=== PATIENT | female | born 1970 | race Caucasian/White ===

== ENCOUNTER 2025-05-12 09:54 | Day surgery (SDC) | payer OTHER, SELFPAY ==
[2025-05-12] VITALS (14 sets, daily range): BP systolic 102–130; BP diastolic 63–86; PULSE 52–83; RESP 14–16; TEMP 36.4–36.9; O2SAT 97–100; BMI 25.9
[2025-05-12] MEDS: Lactated Ringers 1,000 ML 15 ML IV (10:47)
--- NOTE | 2025-05-12 10:54 | PRE.ANES_ITS ---
ASA Classification* ASA Classification ASA Classification: 1 Assessment & Plan Anesthesia* Anesthesia Assessment Anesthesia Assessment: Discussed sedation and/or anesthesia options, risks, benefits, and alternatives with patient/parents/legal guardian/POA. Questions invited. The patient/parents/legal guardian/POA seems to understand and agrees to proceed with anesthesia plan. Reviewed the physical assessment, medical history, allergy history and patient home medications list prior to surgery/procedure/anesthetic and documented any changes. Performed airway and anesthesia risk assessments. Anesthesia Type Anesthesia Type: General and MAC History Source History Obtained from:: Patient and Chart Anesthesia Focused Assessment* Temperature: 98.5 F Pulse Rate: 72 Blood Pressure: 107/83 Respiratory Rate: 16 Pulse Ox: 100 Oxygen Delivery Method: Room Air Airway Assessment Mouth opens: >3 cm Mallampati Score: II Teeth Condition: Intact Neck Range of motion (ROM): Full ROM Labs Anesthesia Preop lab: CBC WBC, (4.4-11.0) 5.9 K/mm3 05/15/17, 10:10 RBC, (4.2-5.4) 4.62 M/mm3 05/15/17, 10:10 Hgb, (12.0-15.0) 13.8 g/dl 05/15/17, 10:10 Hct, (37-47) 42.7 % 05/15/17, 10:10 Plt Count, (150-450) 275 K/mm3 05/15/17, 10:10 CHEMISTRY TSH, (0.358-3.74) 0.75 uIU/mL 05/15/17, 10:10 COAG PT, (11.7-14.9) 13.1 SECONDS 05/15/17, 10:10 Urine Test Negative Negative 05/22/17, 10:50 Pre-Assessment Diagnosis/Proposed Procedure Planned Operative Procedure(s): THD hemorrhoid ligation Anesthesia History 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 When Was Last Pacemaker Check QUESTION #4 FULL TEXT: You/Your Family Experience fever (hyperthermia) with Anesthesia Last Oral Intake Last Oral intake: Last Oral Intake NPO since 00:00 05/12/25 10:36 Meds taken in AM with sips of water? Meds patient instructed to take am of surgery PONV PONV - wheelabrator operator: PONV - wheelabrator operator Female Yes 05/03/25 09:32 HX of Motion Sickness Yes 05/03/25 09:32 HX of N/V After Surgery No 05/03/25 09:32 Non-Smoker Yes 05/03/25 09:32 Duration of Surgery greater No 05/03/25 09:32 than 60 minutes Number of Risk Factors 3 05/03/25 09:32 PONV Score Moderate Risk 05/03/25 09:32 Height & Weight Height & Weight: Anesthesia: Height & Weight Height 5 ft 5 in 05/12/25 10:36 Weight: 70.7 kg 05/12/25 10:36 Body Mass Index (BMI) 25.9 05/12/25 10:36 Respiratory Assessment Respiratory Assessment - wheelabrator operator: Respiratory Tract Infection Hx - wheelabrator operator Hx Respiratory Tract Infection Yes: MILD CONGESTION 05/03/25 09:32 STOP Sleep Apnea STOP Sleep Apnea - wheelabrator operator: STOP Sleep Apnea - wheelabrator operator Hx Hypertension No 05/03/25 09:32 Hx Sleep Apnea No 05/03/25 09:32 CPAP BIPAP Do you snore loudly (louder No 05/03/25 09:32 than talking or can be heard Do you often feel tired/ No 05/03/25 09:32 fatigued/ sleepy during daytime? Has anyone observed you stop No 05/03/25 09:32 breathing during sleep? STOP Results Negative 05/03/25 09:32 QUESTION #5 FULL TEXT : Do you snore loudly (louder than talking or can be heard through closed doors)? 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 Specify any problems Hx of Preganancy in last 3 No 05/03/25 09:32 Months Nurse Filling Out Transfusion [facility] 05/03/25 09:32 & Questions: Date: 05/03/25 12 09:32 Time: 09:38 05/03/25 09:32 Patient unable to answer at this time (ie. confused, unrespo /Reproduction History /Reproductive History - wheelabrator operator: /Reproductive Hx- wheelabrator operator Hx Now No 05/03/25 09:32 Gestational Age (in weeks): EDC: Hx Hx Para Hx Section SAB No 05/03/25 09:32 Does the father of the baby or his family experience fever w Father of the baby Malignant Hypertension history comment Active Medications Active Medications: Current Medications Generic Name Dose Route Start Last Admin Trade Name Freq PRN Reason Stop Dose Admin Lactated Ringer's 1,000 mls @ 15 mls/hr 05/12/25 10:00 05/12/25 10:47 IV 15 mls/hr .Q48H NICOLE Administration PFSH Medical History Wears contact lenses Wears glasses Post-menopausal History of IBS Non-smoker Hemorrhoids Home Medications ?Medication ?Instructions ?Recorded ?Last Taken ?Type NK 05/03/25 Unknown History Allergy/AdvReac Type Severity Reaction Status Date / Time No Known Allergies Allergy Verified 04/19/25 13:13 Family History Mother Cancer bladder cancer with mets to the brain Father Cancer vocal cord and larynx cancer Surgical History History of uterine ablation History of colonoscopy Social History Smoking Status: Never smoker alcohol intake: never substance use type: does not use Review of Systems (Anesthesia) ROS Narrative System reviewed and no additional complaints, except as documented.
--- NOTE | 2025-05-12 10:59 | PCM.HP.STD ---
HPI - General General Date of Admission: 05/12/25 Date of Service: 05/12/25 Chief Complaint: Hemorrhoids HPI Narrative HERNAN CHAMPION, is a 54 F who presents for elective Doppler guided hemorrhoid artery ligation surgery. Patient was seen to the office recently and the surgery was offered to her. [facility], [facility] Medical History Wears contact lenses Wears glasses Post-menopausal History of IBS Non-smoker Hemorrhoids Home Medications ?Medication ?Instructions ?Recorded ?Last Taken ?Type NK 05/03/25 Unknown History Allergy/AdvReac Type Severity Reaction Status Date / Time No Known Allergies Allergy Verified 04/19/25 13:13 Family History Mother Cancer bladder cancer with mets to the brain Father Cancer vocal cord and larynx cancer Surgical History History of uterine ablation History of colonoscopy Social History Smoking Status: Never smoker alcohol intake: never substance use type: does not use Patient's Goals Of Care . What would you like to achieve or improve as a result of your hospital stay?: . Vital Signs Vital Signs Vital Signs: 05/12/25 10:35 05/12/25 10:36 05/12/25 10:38 Temperature 98.5 F Temperature Source Temporal Pulse Rate 72 Respiratory Rate 16 Respiratory Pattern Normal Blood Pressure 107/83 H Blood Pressure Mean 91 Blood Pressure Source Monitor Blood Pressure Position Semi-Fowlers Blood Pressure Location Left Arm Baseline BP 107/83 Pulse Ox 100 Oxygen Delivery Method Room Air 05/12/25 10:55 Temperature 98.5 F Temperature Source Pulse Rate 72 Respiratory Rate 16 Respiratory Pattern Blood Pressure 107/83 H Blood Pressure Mean Blood Pressure Source Blood Pressure Position Blood Pressure Location Baseline BP Pulse Ox 100 Oxygen Delivery Method Room Air Weight Weight: 155 lb 13.869 oz Body Mass Index (BMI) 25.9 Physical Exam Const alert, oriented x3 and no apparent distress Assessment & Plan Assessment/Plan (1) Hemorrhoids: PLAN: Plan The patient is a 54-year-old female in need of a Doppler guided hemorrhoid artery ligation surgery. We again reviewed the details of the planned procedure including risks benefits and alternatives. She wishes to proceed. This began momentarily Charges/Coding Visit Charges Inpatient E&M: 78283 Init Hosp L3
--- OUTSIDE RECORDS SUMMARY | 2025-05-12 11:05 | XMS RPT_ITS | CCD ---
Author Organization [facility] CliniSyne Care Team Providers Care Legal Support Assistant Name Role Phone Priya Stevens Unavailable Unavailable Priya Stevens Unavailable Unavailable Priya Stevens Unavailable Unavailable VaccarielloPriya Unavailable Unavailable Priya Sumnre MD Unavailable Dr. Rj Fontaine DO Unavailable [phone] Dr. Rj Yeboah MD Unavailable Dr. Bang Lacey MD Unavailable Ivanna BARBOSA, Dr. Jhoana Sandra Unavailable Rodney ORTIZ, Dr. Priya Hutchinson Unavailable [phone] Physical Therapy, Kieran Albert Unavailable [place] Tender/Gynecology Prov. Unavailable Un available Benjamin TEACHER COUNSELOR, Karma Unavailable Perry ORTIZ, Pako Gomez Unavailable Day TEACHER COUNSELOR, Apple Unavailable Unavailable Michele TEACHER COUNSELOR, Jazzy Og Unavailable Unavailable Satya BAXTER, Brenda Francois Unavailable Luis CRAIN, Brenda Duckworth Unavailable Unavaila ble Marthey TEACHER COUNSELOR, Mery Unavailable Unavailable Uptain CNM, Crystal K Unavailable [phone] Vess TEACHER COUNSELOR, Neilee L Unavailable Unavailable Randal CRAIN, Papa Unavailable Unavailable Peyton TEACHER COUNSELOR, Linh Slaughter Unavailable Unavaila ble Zaugg TEACHER COUNSELOR, Sarahy Unavailable Unavailable Unavailable Unavailable Camilo TEACHER COUNSELOR, Elana Unavailable Unavailable Unavailable Unavailable UPELLY, CRYSTAL CNM Primary Care Unavailable UPELLY, CRYSTAL CNM Attending Unavailable PRIYA SUMNER Consulting Unavailable UPTAIN CRYSTAL CNM Admitting Unavailable PROVIDER, UNKNOWN Consulting Unavailable PROVIDER, UNKNOWN Consulting Unavailable PROVIDER, UNKNOWN Consulting Unavailable UPTAIN, CRYSTAL CNM Primary Care Unavailable LIBERTADGERALD CNM Attending Unavailable PRIYA SUMNER Consulting Unavailable GERALD MAURER CNM Admitting Unavailable PROVIDER, UNKNOWN Consulting Unavailable PROVIDER, UNKNOWN Consulting Unavailable PROVIDER, UNKNOWN Consulting Unavailable Medications Current Medications Medication Drug Class(es) Dates Sig (Normalized) Sig (Original) amoxicillin 875 mg / clavulanate 125 mg oral tablet (7 sources) Penicillin-class Antibacterial Start: 10-13-2024 amoxicillin 875 mg-potassium clavulanate 125 mg tablet ; 1 (one) tablet q12hrs for 0 days Quantity: 20 {Tablet} Refills: 0 Ordered: 13-Oct-2024 MD Priya Sumner Start: 13-Oct-2024 Start: 06-14-2015 End: 06-24-2015 take 1 tablet by mouth twice daily at mealtime AUGMENTIN, 875-125MG (Oral Tablet) ; 1 Tab two times daily for 10 days Quantity: 20 {Tablet} Refills: 0 Ordered: 10-Jul-2015 MD Pako Amador Start: 14-Jun-2015 End: 24-Jun-2015 Status: Inactive Comments: Take with food Comment on above: Take with food Completed/Discontinued Medications Medication Drug Class(es) Dates Sig (Normalized) Sig (Original) ciprofloxacin 500 mg oral tablet (6 sources) Quinolone Antimicrobial Start: 05-31-2015 End: 06-14-2015 take 1 tablet by mouth twice daily CIPROFLOXACIN HCL, 500MG (Oral Tablet) ; 1 (one) Tablet bid for 0 days Quantity: 14 {Tablet} Refills: 0 Ordered: 14-Jun-2015 Start: 31-May-2015 End: 14-Jun-2015 Status: Inactive ibuprofen 800 mg oral tablet (6 sources) Nonsteroidal Anti-inflammatory Drug take 1 tablet by mouth once daily IBUPROFEN, 800MG (Oral Tablet) ; 1 daily (800 MG) Status: Inactive Comments: per Андрей Comment on above: per Андрей methylPREDNISolone 4 mg oral tablet (6 sources) Corticosteroid Start: 06-07-2010 End: 06-13-2010 MEDROL (YECENIA), 4MG (Oral Tablet) ; 1 Tab as directed for 6 days Quantity: 1 {dose_pack} Refills: 0 Ordered: 07-Jun-2010 MD Priya Sumner Start: 07-Jun-2010 End: 13-Jun-2010 Status: Inactive Comments: wm Comment on above: wm traMADol hydrochloride 50 mg oral tablet (6 sources) Opioid Agonist take 2 tablets by mouth once daily ULTRAM, 50MG (Oral Tablet) ; 2 daily (50 MG) Status: Inactive Comments: per Андрей Comment on above: per Андрей Problems Active Problems Problem Classification Problem Date Documented Da te Episodic/Chronic Acquired foot deformities (12 sources) Hallux valgus; Translations: [Bunion of right foot] 01-08-2024 Episodic Administrative/social admission (12 sources) Sickness in the family; Translations: [Other stressful life events affecting family and household] 01-08-2024 Episodic Gastrointestinal hemorrhage (18 sources) Rectal hemorrhage; Translations: [Hemorrhage of anus and rectum] 01-08-2024 Episodic Genitourinary symptoms and ill-defined conditions (12 sources) Dysuria; Translations: [Dysuria] 01-11-2020 Episodic Hemorrhoids (20 sources) External hemorrhoids; Translations: [Residual hemorrhoidal skin tags] 01-08-2024 Episodic Comment on above: painful, would like removed uncomfortable, about 2-3 cm per pt description and bruised, having some red bleeding and pain with rough bm's. Immunizations and screening for infectious disease (6 sources) Requires diphtheria, tetanus and pertussis vaccination; Translations: [Encounter for immunization] 05-09-2011 Episodic Menstrual disorders (20 sources) Irregular periods; Translations: [Irregular menstruation, unspecified] 01-04-2022 Chronic Nonmalignant breast conditions (20 sources) Breasts asymmetrical; Translations: [Other specified disorders of breast] 01-04-2022 Episodic Other aftercare (6 sources) Drug indicated; Translations: [Other nursing home (current) drug therapy] 06-07-2010 Episodic Other congenital anomalies (6 sources) Congenital accessory skin tag; Translations: [Other specified congenital malformations of skin] 11-19-2013 Chronic Other connective tissue disease (6 sources) Neuralgia, neuritis, and radiculitis, unspecified 04-13-2010 Episodic Other female genital disorders (1 source) Abnormal uterine and vaginal bleeding, unspecified; Translations: [ABNORMAL UTERINE AND VAGINAL BLEEDING, UNSPECIFIED] Onset: 04-21-2017 Chronic Other nutritional; endocrine; and metabolic disorders (1 source) Personal history of other endocrine, nutritional and metabolic disease; Translations: [Personal history of other endocrine, nutritional and metabolic disease] Onset: 02-15-2025 Episodic Other screening for suspected conditions (not mental disorders or infectious disease) (20 sources) Thyroid function tests abnormal; Translations: [Abnormal results of thyroid function studies] 01-04-2022 Episodic Other skin disorders (12 sources) Sebaceous cyst of skin; Translations: [Sebaceous cyst] 07-12-2015 Episodic Other skin disorders (6 sources) Infection of sebaceous cyst; Translations: [Sebaceous cyst] 06-14-2015 Episodic Other skin disorders (12 sources) Lesion of skin of face; Translations: [Disorder of the skin and subcutaneous tissue, unspecified] 11-19-2013 Episodic Other upper respiratory infections (2 sources) Acute sinusitis; Translations: [Acute sinusitis, unspecified] 10-13-2024 Episodic Residual codes; unclassified (12 sources) Influenza vaccination declined; Translations: [Immunization not carried out because of patient refusal] 01-08-2024 Episodic Residual codes; unclassified (6 sources) Body mass index 20-24 - normal; Translations: [Body mass index (BMI) 24.0-24.9, adult] 04-10-2017 Episodic Spondylosis; intervertebral disc disorders; other back problems (12 sources) Backache with radiation; Translations: [Dorsalgia, unspecified] 08-08-2010 Episodic Unclassified (6 sources) Number of Children 01-08-2024 Comment on above: 3. Unclassified (6 sources) Number of Pregnancies 01-08-2024 Comment on above: 3. Unclassified (6 sources) Vaginal deliveries 01-08-2024 Comment on above: 3. Past or Other Problems Problem Classification Problem Date Documented Date Episodic/Chronic Other and unspecified benign neoplasm (6 sources) Hyperplastic polyp of large intestine; Translations: [Polyp of colon] Onset: 03-26-2022 01-08-2024 Episodic Other and unspecified benign neoplasm (6 sources) Adenomatous polyp of colon ; Translations: [Benign neoplasm of colon, unspecified] Onset: 03-26-2022 01-08-2024 Episodic Unclassified (7 sources) Well adult female 01-08-2024 Unclassified (6 sources) Well adult female - The patient feels well with no complaints, has good energy level and is sleeping well. The first day of the last menstrual period was : (no longer having). The current method of contraception is: partner had vasectomy. The patient has a balanced diet. The patient exercises 3 - 4 times per week. The patient sleeps 8 hours per night. The patient's libido is normal. 01-15-2023 Unclassified (6 sources) Well adult female - The patient feels well with no complaints, has good energy level and is sleeping well. The patient has a balanced diet and takes no supplemental vitamins & iron. The patient exercises 3 - 4 times per week. The patient sleeps 8 hours per night. Note for Well adult female: concerns: had vertigo a few months ago when standing, lying down and while doing yoga. states she was unable to pop ears and they felt plugged. symptoms have since resolved. States she is still dealing with hemorrhoid and would like to discuss options. Has bunions on feet that she is wanting referral to staff auditor. 01-04-2022 Unclassified (6 sources) Well adult female - The patient feels well with minor complaints (Has moles that she would like checked on abdomen. Also has red spots on stomach, forehead, and breast.), has good energy level and is sleeping well. The patient is not using any method of contraception at this time. The patient has a balanced diet and takes no supplemental vitamins & iron. The patient exercises weekly (walking two to three days a week). The patient sleeps 8 hours per night. 01-09-2021 Unclassified (6 sources) Well adult female - The patient feels well with no complaints. The current method of contraception is: partner had vasectomy. The patient has a balanced diet. The patient exercises 3 - 4 times per week. The patient sleeps 8 hours per night. 01-11-2020 Unclassified (6 sources) Well adult female - The patient feels well with no complaints, has good energy level and is sleeping well. The first day of the last menstrual period was : (December 2018, history of ablation). The patient is not using any method of contraception at this time. The patient has a balanced diet and takes no supplemental vitamins & iron. The patient exercises 3 - 4 times per week. The patient sleeps 8 hours per night. 04-02-2019 Unclassified (6 sources) Well Adult, female - The patient feels well with minor complaints (irregular periods, hdez). The first day of the last menstrual period was : (03/27/2017). The current method of contraception is: partner had vasectomy. The patient has a balanced diet. The patient exercises weekly. The patient sleeps 8 hours per night. 04-10-2017 Unclassified (6 sources) Well Adult, female - The patient feels well with no complaints, has good energy level and is sleeping well. The first day of the last menstrual period was : (11/22/15last year and a half irregular menses). The current method of contraception is: partner had vasectomy. The patient has a balanced diet. The patient exercises 3 - 4 times per week. The patient sleeps 8 hours per night. 12-14-2015 Unclassified (6 sources) Sebaceous Cyst - Sebaceous cyst on left side of nose. Took 10 day course of Augmentin 06-14-15. Redness and swelling improved. 07-12-2015 Unclassified (6 sources) New skin lesions - The onset of the skin lesions has been rapid and they have been occurring for 3 days. The skin lesions have been increasing in size. The skin lesions are located in the face (left side of nose.). Note for Skin lesions: Has pain and swelling of left nose and left eye. reviewed by [facility] 06-14-2015 Unclassified (6 sources) UTI - Symptoms include dysuria, urinary frequency, urinary urgency and abdominal pain, but do not include hematuria, dark urine or malodorous urine. The pain is located in the suprapubic area. The pain radiates to the back. The patient describes the pain as dull. Onset was gradual 1 week(s) ago. The symptoms occur constantly. The patient describes this as moderate in severity and worsening. Associated symptoms include fever, but do not include chills, nausea or vomiting. 05-31-2015 Unclassified (6 sources) Menstrual problems - The menstrual problems are characterized as intermenstrual spotting, absent menses and irregular menses and have been occurring in an irregular pattern for 1 year. The first day of the last menstrual period was : (02/12/15- 02/24/15). Currently : no. The symptoms have been associated with abdominal cramps and hot flashes, but have not been associated with dizziness, fever, nausea, syncope, vomiting or weight loss (Pt lost 40# on isogenics, is exercising and is eating healthy maintenence foods). The patient denies the use of oral contraceptives or thyroid medications. Note for Menstrual problems: see attached note for her journal dicumentation of periodsPt. also c/o history of moderate yellow/white vaginal discharge all of the time. No c/o perineal pain or itching. 03-06-2015 Unclassified (6 sources) Skin lesion - The skin lesion appeared gradually and has been occurring for 6 months. It has been increasing in size. The lesion is located on the face. Note for Skin lesion: -Also skin tags on her back. 11-19-2013 Unclassified (6 sources) Rectal bleeding - The onset of the rectal bleeding has been sudden and has been occurring in an intermittent pattern for 1 week. The bleeding is characterized as blood streaking of toilet paper. Note for Rectal bleeding: -States she is pretty sure she has had a hemorrhoid since delivery of last child. Never had bleeding. In past week, increased discomfort, blood with BM, feels 2-3 new lumpy areas and feels like she cannot fully complete a bowel movement. Has not tried any otc ointments.no family h/o rectal or colon ca 11-02-2012 Unclassified (6 sources) Well adult female - The patient feels well with minor complaints, has decreased energy level (dealing with stress right now.) and is sleeping poorly. Most recent Pap smear: : (04/13/10 wnl). The first day of the last menstrual period was : (apr 11, 2011). The current method of contraception is: partner had vasectomy. Patient has not had a screening mammogram. Patient has not had bone density screening. Patient has not had a cholesterol screening. There has been no glucose screening. Patient has not had a Zostavax vaccine. Patient has not had a Pneumovax vaccine. Patient has not received a recent influenza vaccine. Last Tetanus booster: unknown/unsure. The patient has a balanced diet and takes no supplemental vitamins & iron. Patient exercises weekly (walking). Patient sleeps 7 hours per night. 05-09-2011 Unclassified (5 sources) Well adult female - The patient feels well with no complaints, has good energy level and is sleeping well. The first day of the last menstrual period was : (No menses, had an ablation 04/2017). The patient is not using any method of contraception at this time. The patient has a balanced diet. The patient exercises 3 - 4 times per week. The patient sleeps 8 hours per night. The patient's libido is decreased. 01-08-2024 Unclassified (1 source) Cold Symptoms 10-13-2024 Unclassified (1 source) Cold Symptoms - Symptoms include nasal congestion, runny nose, ear fullness, scratchy throat, dry cough, productive cough, general malaise and headache, but do not include ear pain, fever or facial pain. The onset was gradual 1 week(s) ago. The symptoms occur constantly. The patient describes this as moderate in severity and unchanged. Current treatment includes non-prescription cold medication (cold and flu). Risk factors do not include smoking. The patient has not been exposed to an individual with a cough, an individual with an upper respiratory infection, an individual with similar symptoms, an individual with strep or secondhand smoke. Patient denies history of seasonal allergies, recurrent sinusitis, recurrent strep pharyngitis, asthma, tonsillectomy or recurrent ear infections. 10-13-2024 Results Test Name Value Interpretation Reference Range [facility] LIPID PANEL, STANDARD - Cholesterol [Mass/Vol] 202 mg/dL High <200 [facility] Comment on above: Performed By: #### 7 [id number] #### [facility] [address] [address] Shift: Fernando Bower MD Cholesterol in HDL [Mass/Vol] 71 mg/dL Normal > OR = 50 [facility] Comment on above: Performed By: #### 7 600 #### [facility] [address] Shift: Fernando Bower MD Cholesterol in LDL [Mass/Vol] 113 mg/dL High [facility] Comment on above: Result Comment: Refe rence range: <100 Desirable range <100 mg/dL for primary prevention; <70 mg/dL for patients with CHD or diabetic patients with > or = 2 CHD risk factors. LDL-C is now calculated using the Acosta calculation, which is a validated novel method providing better accuracy than the Friedewald equation in the estimation of LDL-C. Justo ESRTADA et al. BING. 2013;310(19): 9748-6860 (http://education.M-Audio.PeopleLinx/faq/GML320) Performed By: #### 7 600 #### [facility] [place] [address] [address] Shift: Fernando Bower MD Cholesterol.total/Shaye sterol in HDL [Mass ratio] 2.8 {ratio} Normal <5.0 [facility] Comment on above: Performed By: #### 7 600 #### [facility] [place] [address] [employer] [employer] Shift: Fernando Bower MD NON HDL CHOLESTEROL 131 mg/dL (calc) High <130 [facility] Comment on above: Result Comment: For patients with diabetes plus 1 major ASCVD risk factor, treating to a non-HDL-C goal of <100 mg/dL (LDL-C of <70 mg/dL) is considered a therapeutic option. Performed By: #### 7 600 #### [facility] [address], [address] [place] [address] [employer] Super[employer] [address] Shift: Fernando Bower MD Triglyceride [Mass/Vol] 85 mg/dL Normal <150 [facility] Comment on above: Performed By: #### 7 600 #### [facility] [place] [address] [address] Shift: Fernando Bower MD 3D MAMM BILAT SCREEN 05-11 3D MAMM BILAT SCREEN [place] [address] Patient: DIVINA MENG Phone#: : [phone] Age: 53 Gender: F Pt. Type: Out Account: [id number] Location: Ordering: [facility] Exam Date: 05/11/2024/15:29 Family Phys: PRIYA SUMNER Charge Code: [id number] Physician: [place] Order #: [id number] Dose#: PROCEDURE: BILATERAL SCREENING BREAST TOMOSYNTHESIS MAMMOGRAM WITH CAD COMPARISON: [facility], 3D BILAT SCREEN, 03/08/2022, 17:08. [facility], BILAT SCREENING, 11/30/2019, 13:11. INDICATIONS: SCREENING BREAST COMPOSITION: Heterogeneously dense, which may obscure small masses. FINDINGS: DIAGNOSTIC CATEGORY 2--BENIGN: RIGHT BREAST: No significant suspicious finding. No significant change has occurred. LEFT BREAST: No significant suspicious finding. No significant change has occurred. RECOMMENDATIONS: ROUTINE MAMMOGRAM AND CLINICAL EVALUATION IN 12 MONTHS. PLEASE NOTE: A NORMAL MAMMOGRAM DOES NOT EXCLUDE THE POSSIBILITY OF BREAST CANCER. A CLINICALLY SUSPICIOUS PALPABLE LUMP SHOULD BE BIOPSIED. THIS FACILITY UTILIZES A REMINDER SYSTEM TO ENSURE THAT ALL PATIENTS RECEIVE REMINDER LETTERS FOR APPOINTMENTS. THIS INCLUDES REMINDERS FOR ROUTINE MAMMOGRAMS, DIAGNOSITC MAMMOGRAMS, OR OTHER BREAST IMAGING INTERVENTIONS WHEN APPROPRIATE. THIS PATIENT WILL BE PLACED IN THE APPROPRIATE REMINDER SYSTEM. Dictated by: Kim Cheema MD on 05/11/2024 at 18:16 Approved by: Kim Cheema MD on 05/11/2024 at 18:20 Normal [facility] - Chemistry and C hemistry - challengeon 01-15-2023 Albumin [Mass/Vol] 4.6 g/dL Normal 3.6 - 5.1 g/dL [facility], [facility].; [employer] Albumin/Globulin [Mass ratio] 1.8 {ratio} Normal 1.0 - 2.5 [facility], [facility].; [employer] ALP [Catalytic activity/Vol] 58 U/L Normal 37 - 153 U/L [facility] [employer] ALT [Catalytic activity/Vol] 13 U/L Normal 6 - 29 U/L [place] [employer] [facility], [facility].; [employer] AST [Catalytic activity/Vol] 15 U/L Normal 10 - 35 U/L [employer], [facility].; [employer] Bilirubin [Mass/Vol] 0.4 mg/dL Normal 0.2 - 1 .2 mg/dL [place] [employer] [facility], [facility].; [employer] Calcium [Mass/Vol] 9.7 mg/dL Normal 8.6 - 10. 4 mg/dL [employer], [employer] Chloride [Moles/Vol] 104 mmol/L Normal 98 - 11 0 mmol/L [facility], [facility].; [place] Cholesterol [Mass/Vol] 204 mg/dL Abnormal [facility].; [facility], [facility]. Cholesterol in HDL [Mass/Vol] 82 mg/dL Normal [facility], [facility].; [employer] Cholesterol in LDL [Mass/Vol] 107 mg/dL Abnormal [facility], [facility].; [employer] CO2 [Moles/Vol] 28 mmol/L Normal 20 - 32 mmol/L [facility], [facility].; [employer], [facility]. Creatinine [Mass/Vol] 0.94 mg/dL Normal 0.50 - 1.03 mg/dL [facility], [facility].; [employer] [facility], [facility]. GFR/1.73 sq M.predicted among non-blacks MDRD (S/P/Bld) [Vol rate/Area] 74 mL/min/{1.73_m2} Normal [facility], [facility].; [employer] Glucose [Mass/Vol] 96 mg/dL Normal 65 - 139 mg/dL [facility], [facility].; [employer] Potassium [Moles/Vol] 4.4 mmol/L Normal 3.5 - 5.3 mmol/L [facility], [facility].; [employer] Protein [Mass/Vol] 7.1 g/dL Normal 6.1 - 8.1 g/dL [place] [employer] [facility], [facility].; [employer] Sodium [Moles/Vol] 141 mmol/L Normal 135 - 146 mmol/L [place] [employer] [facility], [facility].; [employer] Triglyceride [Mass/Vol] 64 mg/dL Normal [facility].; [employer], [employer] Urea nitrogen [Mass/Vol] 23 mg/dL Normal 7 - 25 mg/dL [place] [employer] [facility], [facility].; [employer], [facility]. No Panel Informationon 01-15 BUN/CREATININE RATIO SEE NOTE: Normal 6 - 22 [facility] [employer] [facility], [facility].; [employer] CHOL/HDLC RATIO 2.5 Normal [place] [employer] [facility].; [employer] GLOBULIN 2.5 Normal 1.9 - 3.7 [facility] [employer] NON HDL CHOLESTEROL [address] [facility] [place] [employer] [facility], [facility] TSH W/REFLEX TO FT4 0.94 {mIU/L} Normal [facility], [employer], [employer]. Final Surgical Pathology Rep shea 04-02-2022 Final Surgical Pathology Report . Pathology Reports Accession: Collected Date/Time: Received Date/Time: Pathologist: [id number] 03/29/2022 12:54 EDT 04/01/2022 12:54 ANGELIA CORTEZ MD Final Surgical Pathology Report DIAGNOSIS: A) COLON BIOPSY AT 10 CM - HYPERPLASTIC POLYP. B) CECUM, BIOPSY - SERRATED ADENOMA. COMMENT: [facility] [id number] CLINICAL INFORMATION: COLONOSCOPY RECTAL BLEEDING SPECIMEN: A COLON, BX - 10 CM B COLON, BX - CECUM GROSS DESCRIPTION: A. Received in formalin, labeled with the patients name, Case #[id number], and 10 cm 2 fallon tissue fragments measuring 0.2-0.4 cm. TS -1 B. Received in formalin labeled cecum BX are 4 fallon tissue fragments ranging from 0.3 to 0.5 cm. TS -1 Dictated by HALI MCKEON MICROSCOPIC DESCRIPTION: Slides reviewed. Electronically Signed by Pathology Report verified by [facility] ANGELIA VILLALOBOS Sign out Date: 04/02/2022 19:15 Performing Lab: [facility], [address] [place] [address] Pathology Dept Normal [facility] (ID) No Panel Informationon 01-09 [id number] SEE NOTE Normal [facility] [employer].; [employer], [employer]. CLINICAL INFORMATION: SEE NOTE Normal [facility], Inc.; [employer] COMMENT: SEE NOTE Normal [facility] [employer], [facility].; [employer] 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 HPV mRNA E6/E7 Not detected Normal [place] [employer] [facility].; [employer], [employer] INTERPRETATION/RESULT: SEE NOTE Normal [place] [facility] [employer], [employer].; [employer]. LMP: SEE NOTE Normal [place] [employer]. PREV. BX: SEE NOTE Normal [place] [employer].; [employer]. PREV. PAP: SEE NOTE Normal [place] [employer].; [employer], Inc[employer] SOURCE: SEE NOTE Normal [place] [employer] STATEMENT OF ADEQUACY: SEE NOTE Normal [facility] [employer]. Laboratory - Chemistry and C hemistry - challengeon 01-11-2020 Albumin [Mass/Vol] 4.2 g/dL Normal 3.6 - 5.1 g/dL [place] [employer]. Albumin/Globulin [Mass ratio] 1.8 {ratio} Normal 1.0 - 2.5 [place] [employer]. ALP [Catalytic activity/Vol] 51 U/L Normal 31 - 125 U/L [place] [employer].; [employer]. ALT [Catalytic activity/Vol] 12 U/L Normal 6 - 29 U/L [place] [employer].; [employer]. AST [Catalytic activity/Vol] 14 U/L Normal 10 - 35 U/L [place] [employer].; [employer]. Bilirubin [Mass/Vol] 0.4 mg/dL Normal 0.2 - 1 .2 mg/dL [place] [employer].; [employer]. Calcium [Mass/Vol] 9.3 mg/dL Normal 8.6 - 10. 2 mg/dL [place] [employer].; [employer]. Chloride [Moles/Vol] 103 mmol/L Normal 98 - 11 0 mmol/L [place] [employer].; [employer]. Cholesterol [Mass/Vol] 168 mg/dL Normal [facility] [employer]. Cholesterol in HDL [Mass/Vol] 64 mg/dL Normal [place] [employer].; [employer], [employer]. Cholesterol in LDL [Mass/Vol] 90 mg/dL Normal [employer].; [employer]. CO2 [Moles/Vol] 29 mmol/L Normal 20 - 32 mmol/L [facility], [facility].; [place] [employer], [facility]. Creatinine [Mass/Vol] 0.94 mg/dL Normal 0.50 - 1.10 mg/dL [facility], [facility].; [place] [employer], [employer]. GFR/1.73 sq M.predicted among blacks MDRD (S/P/Bld) [Vol rate/Area] 84 mL/min/{1.73_m2} Normal [facility], [facility].; [place] [employer] Glucose [Mass/Vol] 93 mg/dL Normal 65 - 99 mg/dL [facility], [facility].; [place] [employer], [employer]. Potassium [Moles/Vol] 4.3 mmol/L Normal 3.5 - 5.3 mmol/L [facility].; [place] [employer], [employer]. Protein [Mass/Vol] 6.6 g/dL Normal 6.1 - 8.1 g/dL [facility].; [employer], [employer]. Sodium [Moles/Vol] 138 mmol/L Normal 135 - 146 mmol/L [facility], [facility].; [employer], [employer]. Triglyceride [Mass/Vol] 53 mg/dL Normal [facility].; [employer], [employer]. Urea nitrogen [Mass/Vol] 17 mg/dL Normal 7 - 25 mg/dL [facility], [facility].; [employer], [employer]. No Panel Informationon 01-10 BUN/CREATININE RATIO NOT APPLICABLE Normal 6 - 22 [facility].; [employer], Inc[employer] CHOL/HDLC RATIO 2.6 Normal [place] [employer] [facility].; [employer], Inc[employer] eGFR NON-AFR. CUBAN 72 Normal [facility].; [employer], [employer]. GLOBULIN 2.4 Normal 1.9 - 3.7 [place] [employer] [facility].; [employer], Inc[employer] NON HDL CHOLESTEROL [address] [facility], [facility].; [employer], [employer]. Discharge Instructionon 12-2 Discharge Instruction [facility] [employer] [address] [place], [place] [address]Xxyfommmobbc for Home/Discharge Zvgzlyvseydj42/28/17 1215MR#: [id number] Acct: [id number]: DIVINA MENG Rep #: [id number]: 1970 47 From: Priya Stevens MDPCP: Priya Sumner Status: REG SDCDischarge Diet: No RestrictionsDischarge Activity: Return to Normal Activity, May Shower, May Take a Tub BathMay resume sexual activity in: 4 weeksCall your doctor if you observe: Fever of 101 or Higher, Inability to urinate, Inability tohave a bowel movement, Using more than one pad per hourAllergies/Adverse Reactions:AllergiesNo Known Allergies Allergy (Verified 05/15/17 12:45)Medications to take at DischargeOxycodone [Oxyir] 5 - 10 mg PO Q6H PRN PRN #10 tab 05/22/17The following prescriptions were given:Oxycodone [Oxyir] 5 - 10 mg PO Q6H PRN PRN #10 tabPRN Reason: Severe Pain ()Primary Care Physician:Dimitri Sumner [Primary Care Provider] -Please Follow Up With: Priya Stevens MDWhen: 3-4 weeks05/22/17 1216 Date Priya Stevens [facility] [place]: Priya Sumner [facility] ENDOMETRIAL BX/CURETTINGSon 05-22-2017 ENDOMETRIAL BX/CURETTINGS Patient: DIVINA MENG : 1970 (47/F) Acct Num: [id number] Phys: Priya Stevens MD Unit Num: [id number] [facility]: [facility] Specimen: [id number] Received: 05/22/17 629 Spec Type: ENDOM BX/C TISSUES TISSUES: A. Endometrium, NOS B. Uterine cervix, NOS COMMENT B. Immunohistochemistry ([id number]) for surrogate HPV marker (p16) supports theabove diagnosis. GROSS DESCRIPTION A - Received in fixative is one container labeled with the patient's name and designated endometrial curettings. The specimen consists of multiple fragments of hemorrhagic soft tissue that in aggregate measure 3 x 2.5 x 0.3 cm. The entire specimen is submitted in one cassette. B - Received in fixative is one container labeled with the patient's name and designated cervical sample. The specimen consists of multiple fragments of hemorrhagic mucoid tissue that in aggregate measure 1 x 0.5 x 0.1 cm. The specimen is totally submitted in one cassette. / ASHLIE:lori 05/22/17 TC:5 CPT: 88977 x2 HEADER OPERATION: Hysteroscopy, hydro-ablation PRE-OP DIAGNOSIS: Menorrhagia TISSUE SUBMITTED: A Endometrial curettings, B Cervical sample MICROSCOPIC DESCRIPTION Slides are reviewed. MICROSCOPIC DIAGNOSIS A. Endometrial curettings: Disordered proliferative endometrium. B. Cervical sample: Fragments of ectocervicall mucosa with focal minimal changes suspicious for HPVcytopathic effects. See comment. Focal acute and chronic inflammation. SJ:lori 05/23/17 Signed Edin Hyde 05/23/17 Normal [facility] Comment on above: Performed By: #### L 501.9520 ####[facility] [address] [facility] [place], [address] History and Physical Examon 05-22-2017 [facility] and [facility] [address] [place], [place] [address]Egjljoo and Twdlousq91/27/17 2111#: [id number] Acct: [id number]: DIVINA MENG Rep #: [id number]: 1970 47 From: Priya Stevens [facility] Status[facility] PRE [facility] YLocation: SDCHistory and PhysicalDate of Admission: 05/22/17Surgical History and PhysicalDivina Meng, a 47 year old female 3 0 0 0 3, presents for HTA, Hysteroscopy and Dand C on April at 12:00.-- Menorrhagia-- Divina presents here today as referral from Dr. Sheikh for AUB with history of IrregularMenses. 46 y.o. G 3 P 3 non-smoker with LMP of 11-06-17 lasting 5 days, and adds that thiswas her second period in 2 weeks with the first one lasting 4-5 days and heavy as well.Interested in an HTA and spouse has had a Vasectomy for control.Bleeding,Prolonge d/Heavy/Cramping which began 1 -2 years ago. Divina claims it started graduallyand has been present worsening in the last several months. It occurs intermittantly. It islocated in the vagina. It is located in the lower abdomen. Divina characterizes the qualitycramping.; Divina characterizes the quality heavy. Severity is moderate and not improving.Additional comments are: EMBx OK; u/s essentially normal.MEDICATIONS HISTORY:Patient is also takin. No MedsALLERGIES: No Known AllergiesInfections - Chicken poxIllnesses - no serious past illnessesAccidents - NoneHospitalizations - ChildbirthReview of Systems:GENERAL - Denies fever, or chillsSKIN - Denies skin changesEYES - Denies visual changesEARS - Denies difficulty hearingNOSE - Denies nasal congestion or bleedingMOUTH - Denies sore throat or difficulty swallowingNECK - Denies pain or swellingRESPIRATORY - Denies shortness of breath or wheezingCARDIOVASCULAR - Denies palpitations or chest painGASTROINTESTINAL - Denies nausea, vomiting, diarrhea, constipationGENITOURINARY - Denies dysuria, frequency of urination, incontinence of urineMUSCULOSKELETAL - Denies joint or muscle painNEUROLOGICAL - Denies localized numbness or weaknessPSYCHIATRIC - Denies depression or anxietyENDOCRINE - Denies heat or cold intolerance, weight loss or gainHEMATO-IMMUNOLOGIC - Denies excesive bleeding with cutsSOCIAL HISTORY:Alcohol Use - RARELYSmoking - NeverDiet - no special dietLifestyle - moderate stress lifestyle and marriedExercise - regularSeat Belt Use - alwaysEmployer - Active ChiropracticJob 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 - Billing ManagerIllicit Drug Use - NoneSexual Activity - marriedSpouse-Sig Other Name - MichaelSpouse-Sig Other Occupation - Forearm -- [employer]Birth Control - VasectomyFAMILY HISTORY: ncMENSTRUAL HISTORY: LMP Known?- Definite Amount/Duration - 5 days, Regularity - Irregular,Frequency - variable days, LMP - 04/28/17, Age Onset Menarche - 14PAST PREGNANCIES:Total Pregnancies - 3; Full Term Pregnancies - 3; Premature - 0; Abortions, Induced - 0;Abortions, Spontaneous - 0; Ectopics - 0;Multiple Births - 0; Living Children - 3PHYSICAL EXAMBP- 120/82 Sitting, Right arm, regular cuffTemp- 98.5 Taken OrallyWeight- 148.07225 lbsHeight- 65 inchBMI:24.68CONSTITUTION AL - NAD, well nourished, and well developedSKIN - No rash, lesions, or ulcersHEENT - Normocephalic, PERRLA, EOMINECK - No nodes, no nuchal rigidity and thyroid normal size and textureLYMPH NODES - Palpation of lymph nodes in neck and groins within normal limitsLUNGS - CTA x2 without wheezes, crackles or ralesCARDIAC - Regular rate and rhythm without rubs, murmurs, or gallopsABDOMEN - Without hepatosplenomegaly, distention, masses, rebound, or guarding; normal bowelsounds; no herniasEXTREMITIES - No edema or calf tendernessNEUROLOGICAL - Cranial nerves II-XII grossly intactPSYCHIATRIC - A and O to time, place, person, mood and affectExternal Genitial Vagina - non-tender without lesionsUrethra/Urethral Meatus - non-tenderBladder - non-tenderVagina - vaginal grider are pink and moist without loss of rugae and no evidence of atropyCervix - without cervical motion tenderness and has normal size and features without evidentlesions and cervix bulbus and somewhat inflammed ? from tampons; LAVH likely feasibleUterus - multiparous size 6 cm AND wt 75-125 gAdnexa - clear without massess or tendernessPap - deferred as not yet dueASSESSMENT/PLAN: MenorrhagiaReviewed normal pelvic u/s results and EMBx. Check TSH. Plan to proceed with H/S, Dand C, and HTA. Discussed RBAs and all questions answered.05/22/17 0858 Date Priya Stevens MDCosigner Signature: Date (if applicable)CC: Priya Stevens MD Signed Normal [facility] IMMUNOHISTOCHEMISTRYon 05-22 IMMUNOHISTOCHEMISTRY Patient: BRITTNEY MENG : 1970 (47/F) Acct Num: [id number] Phys: Rodney ORTIZ,Priya Unit Num: [id number] Loc: [facility] Specimen: [id number] Received: 05/23/171021 Spec Type: IMMUNO TISSUES TISSUES: B. Uterine cervix, NOS SPECIMEN INFORMATION: Tissue Source: B Cervical sample Clinical Info: Menorrhagia Specimen Number: [id number] CPT code: 41815, 67334 METHODOLOGY: Deparaffinized sections of prefer/formalin-fixed tissue or PAP/DQ stained slides are incubated with monoclonal/polyclonal antibodies/oligonucleotid e probes. Localization is made via biotin free immunoperoxidase method. Appropriate controls are performed and reacted as expected. Results on target cell population are indicated in the following table: RESULTS: ANTIBODY / CLONE RESULT P16 (E6H4) positive, focal and patchy Ki-67 (30-9) positive, low These tests were developed and their performance characteristics determined by [facility]. They may not have been cleared or approved by the U.S. Food and Drug Administration. The FDA has determined that such clearance or approval is not necessary. INTERPRETATION: B. Cervical sample: Fragments of ectocervical mucosa with focal minimal changes suspicious for HPV cytopathic effects. SJ:lori 05/23/17 PHYSICIAN AND INSTITUTION [address] [address] Signed Edin Hyde 05/23/17 Normal [facility] Comment on above: Performed By: #### L 501.9520 ####[facility] [address] [place], [address] Operative Reporton 7 Operative Report [facility] [employer] [address] [place], [place] [address]Sxlkpxrbr Wqhwgb37/28/17 1212#: [id number] Acct: [id number]: DIVINA MENG Rep #: [id number]: 1970 47 From: Priya Stevens MDPCP: Priya Sumner Status: REG [facility] YLocation: [id number] ReportDate of Procedure: 05/22/17Surgeon: Priya Stevens MD, FACOGAnesthesia: Cami Fink CRNAType of anesthesia: General EndotrachealProcedure: Diagnostic Hysteroscopy, Dilation and Curettage, Hydrothermal AblationPre-op: MenorrhagiaPost-Op: MenorrhagiaFindings: 10 cm EM cavity with normal-appearing endometrium; no polyps or fibroids visualized;large bulbous and inflamed cervix; cervix which protruded to within 2 cm of the vaginal outlet.Vaginal hysterectomy would be possible.Indication: This is a 47 year old multiparous patient who has been having problems withextremely heavy menses. Conservative measures have not been helpful. Endometrial sampling wasbenign and pelvic ultrasound showed that ablation may be helpful. Pt has been counseledregarding the risks, benefits and alternatives of this procedure and all questions answered.She understands that only about half of patients will have amenorrhea after this procedure.Procedure: Patient taken to the operating room where after induction of general anesthesia thepatient was prepped and draped in the usual sterile fashion. Bladder was drained of urine witha catheter. Anterior cervix grasped and cervix was dilated to about 17 Georgian size.Hysteroscopic hydrothermal ablation (HTA) unit was place in the cervix and the above findingswere noted. HTA unit was removed and the uterus was gently curretted removing all contents.An HTA ablation cycle was then carried out at about 90 degrees Centigrade for 10 minutes withvirtually no fluid loss during the procedure. After an appropriate cool down the HTA unit wasremoved with minimal bleeding noted. There was noted to be some oozing from the tenaculumplacement site and a single horizontal mattress 3-0 Vicryl suture was placed to help withpostoperative hemostasis. Cervical sampling was gathered at this time as well.The patient tolerated the procedure well and was taken to the recovery room in satisfactorycondition. Sponge, instruments and needle counts were all correct. There were no apparentcomplications of the surgery. Cefotan 2 gms IV was given prior to the procedure.Estimated Blood Loss: MinimalSpecimen to Pathology: Endometrial Curettings; cervical mjpozqac21/28/17 1301 Date Priya Stevens [facility]: Priya Sumner; Priya Stevens MD Signed Normal [facility] ,Urineon 05-22-2017 HCGUQUAL Negative Normal [facility] Comment on above: Result Comment: Very dilute urine specimens, as indicated by a low specificgravity, may not contain escrow representative levels of hCG.If is still suspected, a first morning urinespecimen should be collected 48 hours later and tested. Performed By: #### L 400.7600 ####[facility] [address] [place], [address] CBC-Complete Blood Cnt No Di ffon 05-15-2017 Erythrocyte distribution width Auto Ratio (RBC) 13.0 % Normal 11.6-14.6 [facility] Comment on above: Performed By: #### L 100.0500 ####[facility] [address] [place], [address] Erythrocytes (RBC) 4.62 M/mm3 Normal 4.2-5.4 [facility] Comment on above: Performed By: #### L 100.0500 ####[facility] [address] [place], [address] Hematocrit (HCT) 42.7 % Normal 37-47 [facility] Comment on above: Performed By: #### L 100.0500 ####[facility] [address] [place], [address] Hemoglobin mass conc (Bld) 13.8 g/dL Normal 12.0-15.0 [facility] Comment on above: Performed By: #### L 100.0500 ####[facility] [address] [place], [address] MCH 29.9 pg Normal 27.0-32.0 [facility] Comment on above: Performed By: #### L 100.0500 ####[facility] [address] [place], [address] MCHC mass conc (RBC) 32.3 g/gl Normal 32-36 [facility] Comment on above: Performed By: #### L 100.0500 ####[facility] [address] [place], [address] MCV 92.4 fL Normal 81-99 [facility] Comment on above: Performed By: #### L 100.0500 ####[facility] [address] [place], [address] Platelet mean volume (PMV) 9.6 fL Normal 6.2-12.0 [facility] Comment on above: Performed By: #### L 100.0500 ####[facility] [address] [place], [address] Platelets 275 10*3/uL Normal 150-450 [facility] Comment on above: Performed By: #### L 100.0500 ####[facility] [address] [place], [address] RDW SD 43.3 fl Normal 35.1-43.9 [facility] Comment on above: Performed By: #### L 100.0500 ####[facility] [address] [place], [address] WBC (Leukocytes) 5.9 10*3/uL Normal 4.4-11.0 [facility] Comment on above: Performed By: #### L 100.0500 ####[facility] [address] [place], [address] Partial Thromboplast Timeon 05-15-2017 aPTT 27.8 s Normal 24.1-36.2 [facility] Comment on above: Performed By: #### L 300.3900, L300.4310 ####[facility] [address] [place], [address] ,Serum,hCG Quali.on 05-15-2017 HCG Qual triggr < 1 Normal =>Qualitat sven [facility] Comment on above: Performed By: #### L 700.6800 ####[facility] [address] [place], [address] HCGSQUAL Negative Normal 0-9 Nonpreg [facility] Comment on above: Performed By: #### L 700.6800 ####[facility] [address] [place], [address] Prothrombin Time w/INRon INR Coag RelTime (PPP) 1.0 {INR} Normal [facility] Comment on above: Performed By: #### L 300.3900, L300.4310 ####[facility] [address] [place], [address] Prothrombin time (PT) Coag time (PPP) 13.1 s Normal 11.7-14.9 [facility] Comment on above: Performed By: #### L 300.3900, L300.4310 ####[facility] [address] [place], [address] Thyroid Stim Hormone (TSH)on 05-15-2017 Thyroid stimulating hormone (TSH) 0.75 uIU/mL Normal 0.358-3.74 [facility] Comment on above: Performed By: #### L 501.9534 ####[facility] [address] [place], [address] Type AND Screenon 05-15-2017 Antibody Screen Negative Normal [facility] Comment on above: Order Comment: Surge ry Date: 05/22/17Hx of Preganancy in last 3 Months NoEver experience any problems with transfusion(s)? NHx of Transfusion in last 3 Months NReason for Type AND Screen/Red Cells: SURGERYSURGICAL PROCEDURE: HTA Performed By: #### B 101.7475 ####[facility] [address] [place], [address] BLOOD TYPE GEL Positive Normal [facility] Comment on above: Order Comment: Surge ry Date: 05/22/17Hx of Preganancy in last 3 Months NoEver experience any problems with transfusion(s)? NHx of Transfusion in last 3 Months NReason for Type AND Screen/Red Cells: SURGERYSURGICAL PROCEDURE: HTA Performed By: #### B 101.7475 ####[facility] [address] [place], [address] Thyroid Stim Hormone (TSH)on 05-01-2017 Thyroid stimulating hormone (TSH) 0.73 uIU/mL Normal 0.358-3.74 [facility] Comment on above: Performed By: #### L 501.9520 ####[facility] [address] [facility] [employer] [place], [place], [address] ENDOMETRIAL BX/CURETTINGSon 04-16-2017 ENDOMETRIAL BX/CURETTINGS Patient: DIVINA MENG : 1970 (46/F) Acct Num: [id number] Phys: Rodney ORTIZ,Priya Unit Num: [id number] Loc: LABSPEC Specimen: [id number] Received: 04/16/17 - 1543 Spec Type: ENDOM BX/C TISSUES TISSUES: GROSS DESCRIPTION Received in fixative is one container labeled with the patient's name and designated EM biopsy. The specimen consists of multiple irregular fragments of fallon-pink soft tissue that in aggregate measure 3 x 2.5 x 0.3 cm. The specimen is totally submitted in one cassette. / SJ:lori 04/18/17 TC:4 CPT: 18411 HEADER OPERATION: Endometrial biopsy PRE-OP DIAGNOSIS: Abnormal uterine bleeding N93.9 TISSUE SUBMITTED: Endometrial biopsy MICROSCOPIC DESCRIPTION Slides are reviewed. MICROSCOPIC DIAGNOSIS Endometrial biopsy: Secretory endometrium. SJ:lori 04/21/17 Signed Edin Hyde 04/21/17 Normal [facility] Comment on above: Performed By: #### P EMB ####[facility] [address] [place], [address] Laboratory - Chemistry and C hemistry - challengeon 12-14-2015 Cholesterol [Mass/Vol] 164 mg/dL Normal 0 - 2 00.0 mg/dL [employer]. Cholesterol in HDL [Mass/Vol] 78 mg/dL Abnormal 30.0 - 40.0 mg/dL [employer].; [employer]. Cholesterol in LDL [Mass/Vol] 64 mg/dL Normal 50.0 - 130.0 mg/dL [employer].; [employer], [employer]. Cholesterol non HDL [Mass/Vol] 86 mg/dL Normal [employer].; [employer], [employer]. Cholesterol.total/Shaye sterol in HDL [Mass ratio] 2.1 {ratio} Normal 0 - 5.0 [employer].; [employer], [employer]. Glucose Glucometer (BldC) [Moles/Vol] 97 Normal 60 - 120 [employer].; [employer], [employer]. Hemoglobin.gastrointest inal Ql (Stl) Negative Normal [employer].; [employer], [employer]. Triglyceride [Mass/Vol] 106 mg/dL Normal 40 - 150 mg/dL [employer], [employer].; [employer]. No Panel Informationon 12-13 PANEL NAME THIN PREP (QU) PAP W ITH HPV REFLEX Normal [employer] Laboratory - Chemistry and C hemistry - challengeon 05-31-2015 Bilirubin Ql (U) Negative Normal [employer].; [employer] Ketones Ql (U) Negative Normal [facility].; [employer]. pH (U) 5.0 [pH] Abnormal [facility].; [employer]. Specific gravity (U) [Rel density] 1.015 Normal [facility] [facility].; [facility] Urobilinogen Qn (U) 0.2 mg/dL Normal [facility].; [employer]. Laboratory - Hematology and Cell countson 05-31-2015 Hemoglobin Ql (U) moderate Abnormal [place] [employer]. Laboratory - Microbiology an d Antimicrobial susceptibilityon 05-31-2015 Bacteria identified Cx Nom (U) CULTURE URINE Normal [place] [employer] [facility] HospitalSn[facility]; [facility] Laboratory - Specimen inform ationon 05-31-2015 Appearance (U) clear Normal [facility]Sn[facility]; [facility] Color (U) dark Yellow Normal [place] [employer] [facility]; [facility]. Laboratory - Urinalysison Glucose Test strip (U) [Mass/Vol] Negative Normal [facility]; [facility]. Leukocyte esterase Test strip Ql (U) moderate Abnormal [place] [employer] [facility].; [facility]. Nitrite Ql (U) Negative Normal [place] [employer] [facility].; [employer]. Protein Ql (U) Negative Normal [place] [employer] [facility].; [employer]. Laboratory - Chemistry and C hemistry - challengeon 03-06-2015 Free T3 [Mass/Vol] T3, FREE Normal [facility] CenterJ[facility] HospitalSn[facility]; [employer]. Free T4 [Mass/Vol] 1.15 ng/dL Abnormal 0.61 - 1.12 ng/dL [place] [employer] [facility].; [employer]. TSH Qn 0.39 m[IU]/L Normal 0.34 - 5.60 {uIU/ml} [place] [employer]. Laboratory - Chemistry and C hemistry - challengeon 05-09-2011 Bilirubin Ql (U) Negative Normal [place] [employer]; [employer]. Cholesterol [Mass/Vol] 155 mg/dL Normal 0 - 2 00.0 mg/dL [facility]; [facility] Cholesterol in HDL [Mass/Vol] 57 mg/dL Abnormal 30.0 - 40.0 mg/dL [facility].; [facility], [facility] Cholesterol in LDL [Mass/Vol] 78 mg/dL Normal 50.0 - 130.0 mg/dL [facility].; [place] [employer] [facility] Cholesterol.total/Shaye sterol in HDL [Mass ratio] 2.7 {ratio} Normal 0 - 5.0 [facility]; [place] [employer] [facility] Glucose Glucometer (BldC) [Moles/Vol] 90 Normal 60 - 120 [facility]; [place] [employer] [facility] Ketones Ql (U) Negative Normal [facility]; [place] [employer] [facility] pH (U) 5.0 [pH] Normal 4.6 - 8.0 [place] [employer] [facility]; [employer] [facility] Specific gravity (U) [Rel density] 1.025 Normal 1.001 - 1.025 [place] [employer] [facility]; [employer]. Triglyceride [Mass/Vol] 103 mg/dL Normal 40 - 150 mg/dL [place] [employer] [facility].; MorrisInnovat[employer] [facility]. TSH Qn 0.72 m[IU]/L Normal 0.40 - 4.50 {mIU/L} [place] [employer] [facility].; [facility]A[employer] [facility]. Laboratory - Cytologyon 04-25 Microscopic observation Cyto stain Nom (Cvx) SEE NOTE Normal [place] [employer] [facility].; [employer]. Laboratory - Hematology and Cell countson 05-09-2011 Hemoglobin Ql (U) Small Abnormal [place] [employer]. Laboratory - Specimen inform ationon 05-09-2011 Appearance (U) Clear Normal [place] [employer].; [employer], [employer]. Color (U) Yellow Normal [place] [employer] [facility].; [employer]. Laboratory - Urinalysison Glucose Test strip (U) [Mass/Vol] Negative Normal [place] [employer].; [employer]. Leukocyte esterase Test strip Ql (U) Small Abnormal [facility].; [employer]. Nitrite Ql (U) Negative Normal [facility].; [employer]. Protein Ql (U) Negative Normal [facility] CenterJ[facility].; [employer]. No Panel Informationon 05-09 NON HDL - Normal [place] [employer] [facility].; [employer]. UA - UROBILINOGEN 0.2 mg/dL Normal [place] [employer] [facility].; [employer]. Laboratory - Chemistry and C hemistry - challengeon 04-13-2010 Bilirubin Ql (U) Negative Normal [place] [employer].; [employer]. Ketones Ql (U) Negative Normal [place] [employer] [facility].; [employer]Crack[employer], [employer]. pH (U) 6.0 [pH] Normal 4.6 - 8.0 [place] [employer].; [employer]. Specific gravity (U) [Rel density] 1.010 Normal 1.001 - 1.025 [place] [employer].; [employer]. Laboratory - Cytologyon 03-26 Cytology report Cyto stain Doc (Cvx/Vag) SEE NOTE Normal [place] [employer] [facility].; [employer]. Laboratory - Hematology and Cell countson 04-13-2010 Hemoglobin Ql (U) Negative Normal [place] [employer].; [employer]. Laboratory - Specimen inform ationon 04-13-2010 Appearance (U) clear Normal [place] [employer] [facility].; [employer]. Color (U) yellow Normal [facility].; [employer]. Laboratory - Urinalysison Glucose Test strip (U) [Mass/Vol] Negative Normal [facility].; [employer]. Leukocyte esterase Test strip Ql (U) moderate Abnormal [place] [employer] [facility].; [employer], [employer]. Nitrite Ql (U) Negative Normal [facility].; [employer]. Protein Ql (U) Negative Normal [facility].; [employer]. No Panel Informationon 04-13 UA - UROBILINOGEN 0.2 mg/dL Normal [facility].; [facility], [facility] Vital Signs Date Time Vital Sign Value Performing Clinician Facility 10-13-2024 16:27-0400 Body height 165.1 cm Elana Page LPN [facility], [facility].; [place] [employer] [facility], [facility]. 10-13-2024 16:27-0400 Body mass index (BMI) [Ratio] 25.29 kg/m2 Elana Page LPN [facility], [facility].; [place] [employer] [facility], [facility]. 10-13-2024 16:27-0400 Body surface area Derived from formula 1.76 m2 Elana Page LPN [facility], [facility].; [facility], [facility]. 10-13-2024 16:27-0400 Body temperature 99.4 [degF] Elana Page LPN [facility], [facility].; [place] [employer] [facility], [facility]. Comment on above: Method: Tympanic 10-13-2024 16:27-0400 Body weight 68.95 kg Elana Page LPN [facility], [facility].; [place] [employer] [facility]. 10-13-2024 16:27-0400 Diastolic blood pressure 86 mm[Hg] Elana Page LPN [facility], [facility].; [employer], [employer]. Comment on above: Patient Position: Sitting; Cuff Location : Left Arm; Cuff Size: Standard 10-13-2024 16:27-0400 Heart rate 76 /min Elana Page LPN [facility], [facility].; [place] [employer] [facility]. Comment on above: Pattern: Regular 10-13-2024 16:27-0400 Inhaled oxygen concentration 21 % Elana Page LPN [facility], [facility].; [employer], [employer]. Comment on above: Room air 10-13-2024 16:27-0400 SaO2% (BldA) [Mass fraction] 94 % Elana Page LPN [facility], [facility].; [employer] 10-13-2024 16:27-0400 Systolic blood pressure 118 mm[Hg] Elana Page LPN [facility], [facility].; [employer]. Comment on above: Patient Position: Sitting; Cuff Location : Left Arm; Cuff Size: Standard 01-08-2024 15:52-0400 Body height 165.1 cm Papa Tee RN [place] [employer] [facility].; [place] [employer] [facility]. 01-08-2024 15:52-0400 Body mass index (BMI) [Ratio] 25.96 kg/m2 Papa Tee RN [place] [employer] [facility].; [place] [employer] [facility]. 01-08-2024 15:52-0400 Body surface area Derived from formula 1.78 m2 Papa Tee RN [place] [employer].; [place] [employer]. 01-08-2024 15:52-040 Body weight 70.76 kg Papa Tee RN [place] [employer].; [employer]. 01-08-2024 15:52-0400 Diastolic blood pressure 76 mm[Hg] Papa Tee RN [place] [employer].; [employer]. Comment on above: Patient Position: Sitting; Cuff Location : Left Arm; Cuff Size: Standard 01-08-2024 15:52-0400 Heart rate 83 /min Papa Tee RN [place] [employer].; [employer]. Comment on above: Pattern: Regular 01-08-2024 15:52-0400 Systolic blood pressure 120 mm[Hg] Papa Tee RN [place] [employer]. Comment on above: Patient Position: Sitting; Cuff Location : Left Arm; Cuff Size: Standard 01-15-2023 08:48-0400 Diastolic blood pressure 86 mm[Hg] Gerald Maurer CNM Work Phone: [employer].; [employer]. Comment on above: Patient Position: Sitting; Cuff Location : Left Arm; Cuff Size: Standard 01-15-2023 08:48-0400 Systolic blood pressure 135 mm[Hg] Gerald Maurer CNM Work Phone: [employer].; [employer]. Comment on above: Patient Position: Sitting; Cuff Location : Left Arm; Cuff Size: Standard 01-15-2023 08:03-0400 Body height 165.1 cm Priya Sumner MD Work Phone: [place] [employer] [facility]; [facility]. 01-15-2023 08:03-0400 Body mass index (BMI) [Ratio] 26.85 kg/m2 Priya Sumner MD Work Phone: [facility]; [employer]. 01-15-2023 08:03-0400 Body surface area Derived from formula 1.81 m2 Priya Sumner MD Work Phone: [employer]; [employer]. 01-15-2023 08:03-0400 Body weight 73.2 kg Priya Sumner MD Work Phone: [place] [employer]; [employer]. 01-15-2023 08:03-0400 Diastolic blood pressure 96 mm[Hg] Priya Sumner MD Work Phone: [employer]; [employer]. Comment on above: Patient Position: Sitting; Cuff Location : Left Arm; Cuff Size: Standard 01-15-2023 08:03-0400 Heart rate 72 /min Priya Sumner MD Work Phone: [place] [employer]; [employer]. Comment on above: Pattern: Regular 01-15-2023 08:03-0400 Systolic blood pressure 142 mm[Hg] Priya Sumner MD Work Phone: [employer]; [employer]. Comment on above: Patient Position: Sitting; Cuff Location : Left Arm; Cuff Size: Standard 01-04-2022 08:47-0400 Body weight 66.23 kg Mery Fernandez LPN [facility].; [facility]. 01-04-2022 08:47-0400 Diastolic blood pressure 84 mm[Hg] Mery Fernandez LPN [facility].; [employer]. Comment on above: Patient Position: Sitting; Cuff Location : Left Arm; Cuff Size: Standard 01-04-2022 08:47-0400 Heart rate 67 /min Merytabitha Fernandez [facility] [employer]. Comment on above: Pattern: Regular 01-04-2022 08:47-0400 Systolic blood pressure 121 mm[Hg] Merytabitha Fernandez [facility] [employer], [employer]. Comment on above: Patient Position: Sitting; Cuff Location : Left Arm; Cuff Size: Standard 01-09-2021 15:30-0400 Body height 165.1 cm Mery Shellyzelalem [facility] [place] [employer] [facility], [facility]. 01-09-2021 15:30-0400 Body mass index (BMI) [Ratio] 25.96 kg/m2 Mery Miozelalem [facility] [place] [employer] 01-09-2021 15:30-0400 Body surface area Derived from formula 1.78 m2 [facility] [place] [employer], [facility]. 01-09-2021 15:30-0400 Body weight 70.76 kg Mery Rebecca [facility], [facility].; [place] [employer], [employer]. 01-09-2021 15:30-0400 Diastolic blood pressure 81 mm[Hg] Mery Rebecca [facility] [employer], [employer]. Comment on above: Patient Position: Sitting; Cuff Location : Left Arm; Cuff Size: Standard 01-09-2021 15:30-0400 Heart rate 67 /min Merytabitha Fernandez [facility] [employer]. Comment on above: Pattern: Regular 01-09-2021 15:30-0400 Systolic blood pressure 122 mm[Hg] Merytabitha Fernandez [facility] [employer]. Comment on above: Patient Position: Sitting; Cuff Location : Left Arm; Cuff Size: Standard 01-11-2020 09:40-0400 Body height 165.1 cm Sarahy Bennett [facility] [employer]. 01-11-2020 09:40-0400 Body mass index (BMI) [Ratio] 25.63 kg/m2 Sarahy Zaugg TEACHER COUNSELOR [facility] 01-11-2020 09:40-0400 Body surface area Derived from formula 1.77 m2 Sarahy Zaugg TEACHER COUNSELOR [facility]Cr[facility].; [employer] 01-11-2020 09:40-0400 Body weight 69.85 kg Sarahy Zaugg TEACHER COUNSELOR [facility] 01-11-2020 09:40-0400 Diastolic blood pressure 85 mm[Hg] Sarahy Zaugg TEACHER COUNSELOR [facility]Cr[employer].; [employer] Comment on above: Patient Position: Sitting; Cuff Location : Left Arm; Cuff Size: Standard 01-11-2020 09:40-0400 Heart rate 66 /min Sarahy Kathrynugg [facility] [employer] Comment on above: Pattern: Regular 01-11-2020 09:40-0400 Systolic blood pressure 127 mm[Hg] Sarahy Zaugg TEACHER COUNSELOR [facility]Cr[employer].; [employer], [employer]. Comment on above: Patient Position: Sitting; Cuff Location : Left Arm; Cuff Size: Standard 04-02-2019 10:17-0500 Body height 165.1 cm Apple Day [facility] [employer] 04-02-2019 10:17-0500 Body mass index (BMI) [Ratio] 25.96 kg/m2 Apple Day TEACHER COUNSELOR MorrisCr[employer].; [employer] 04-02-2019 10:17-0500 Body surface area Derived from formula 1.78 m2 [employer] [facility].; [employer] 04-02-2019 10:17-0500 Body weight 70.76 kg Apple Day TEACHER COUNSELOR [employer] 04-02-2019 10:17-0500 Diastolic blood pressure 83 mm[Hg] Apple Day [facility] [employer]. Comment on above: Patient Position: Sitting; Cuff Location : Left Arm; Cuff Size: Standard 04-02-2019 10:17-0500 Heart rate 68 /min Apple Day TEACHER COUNSELOR [employer]. Comment on above: Pattern: Regular 04-02-2019 10:17-0500 Systolic blood pressure 122 mm[Hg] Apple Day TEACHER COUNSELOR [employer]. Comment on above: Patient Position: Sitting; Cuff Location : Left Arm; Cuff Size: Standard 04-10-2017 13:39-0500 Body height 165.1 cm Neilee L Vess TEACHER COUNSELOR [employer]. 04-10-2017 13:39-0500 Body mass index (BMI) [Ratio] 24.63 kg/m2 Neilee L Vess TEACHER COUNSELOR [employer] 04-10-2017 13:39-0500 Body surface area Derived from formula 1.74 m2 Neilee L Vess TEACHER COUNSELOR [employer], [employer]. 04-10-2017 13:39-0500 Body weight 67.13 kg Neilee L Vess TEACHER COUNSELOR [employer], [employer].; [employer], [employer]. 04-10-2017 13:39-0500 Diastolic blood pressure 84 mm[Hg] Neilee L Vess TEACHER COUNSELOR [employer]. Comment on above: Patient Position: Sitting; Cuff Location : Left Arm; Cuff Size: Standard 04-10-2017 13:39-0500 Heart rate 78 /min Neilee L Vess TEACHER COUNSELOR [employer]. Comment on above: Pattern: Regular 04-10-2017 13:39-0500 Systolic blood pressure 129 mm[Hg] Neilee L Vess TEACHER COUNSELOR [employer]. Comment on above: Patient Position: Sitting; Cuff Location : Left Arm; Cuff Size: Standard 12-14-2015 09:52-0400 Body height 165.1 cm Neilee L Vess TEACHER COUNSELOR [employer]. 12-14-2015 09:52-0400 Body mass index (BMI) [Ratio] 22.8 kg/m2 Neilee L Vess TEACHER COUNSELOR [employer].; [employer]. 12-14-2015 09:52-0400 Body surface area Derived from formula 1.68 m2 Neilee L Vess TEACHER COUNSELOR [employer], [employer].; [employer] 12-14-2015 09:52-0400 Body weight 62.14 kg Neilee L Vess TEACHER COUNSELOR [employer], [employer].; [employer]. 12-14-2015 09:52-0400 Diastolic blood pressure 74 mm[Hg] Neilee L Vess TEACHER COUNSELOR [employer], [employer].; [employer]. Comment on above: Patient Position: Sitting; Cuff Location : Right Arm; Cuff Size: Standard 12-14-2015 09:52-0400 Heart rate 93 /min Neilee L Vess TEACHER COUNSELOR [employer], [employer].; [employer]. Comment on above: Pattern: Regular 12-14-2015 09:52-0400 Systolic blood pressure 118 mm[Hg] Neilee L Vess TEACHER COUNSELOR [facility].; [employer]. Comment on above: Patient Position: Sitting; Cuff Location : Right Arm; Cuff Size: Standard 07-12-2015 13:36-0500 Body height 163.83 cm Priya Sumner MD Work Phone: [employer].; [employer]. 07-12-2015 13:36-0500 Body mass index (BMI) [Ratio] 22.81 kg/m2 Priya Sumner MD Work Phone: [employer].; [employer]. 07-12-2015 13:36-0500 Body surface area Derived from formula 1.66 m2 Priya Sumner MD Work Phone: [employer].; [employer]. 07-12-2015 13:36-0500 Body weight 61.24 kg Priya Sumner MD Work Phone: [employer].; [employer]. 07-12-2015 13:36-0500 Diastolic blood pressure 89 mm[Hg] Priya Sumner MD Work Phone: [employer]; [employer]. Comment on above: Patient Position: Sitting; Cuff Location : Left Arm; Cuff Size: Large 07-12-2015 13:36-0500 Heart rate 71 /min Priya Sumner MD Work Phone: [employer]; [employer]. Comment on above: Pattern: Regular 07-12-2015 13:36-0500 Systolic blood pressure 128 mm[Hg] Priya Sumner MD Work Phone: [employer].; [employer]. Comment on above: Patient Position: Sitting; Cuff Location : Left Arm; Cuff Size: Large 06-14-2015 09:17-0500 Body height 163.83 cm Priya Sumner MD Work Phone: [employer]; [employer]. 06-14-2015 09:17-0500 Body mass index (BMI) [Ratio] 22.81 kg/m2 Priya Sumner MD Work Phone: [employer]; [employer]. 06-14-2015 09:17-0500 Body surface area Derived from formula 1.66 m2 Priya Sumner MD Work Phone: [employer]; [employer]. 06-14-2015 09:17-0500 Body temperature 97.7 [degF] Priya Sumner MD Work Phone: [employer]; [employer]. Comment on above: Method: Tympanic 06-14-2015 09:17-0500 Body weight 61.24 kg Priya Sumner MD Work Phone: [employer]; [employer]. 06-14-2015 09:17-0500 Diastolic blood pressure 83 mm[Hg] Priya Sumner MD Work Phone: [employer]; [employer]. Comment on above: Patient Position: Sitting; Cuff Location : Left Arm; Cuff Size: Large 06-14-2015 09:17-0500 Heart rate 73 /min Priya Sumner MD Work Phone: [employer]; [employer]. Comment on above: Pattern: Regular 06-14-2015 09:17-0500 Systolic blood pressure 124 mm[Hg] Priya Sumner MD Work Phone: [employer].; [employer]. Comment on above: Patient Position: Sitting; Cuff Location : Left Arm; Cuff Size: Large 05-31-2015 15:14-0500 Body height 163.83 cm [place] [employer] TEACHER COUNSELOR Work Phone: [employer]; [employer]. 05-31-2015 15:14-0500 Body mass index (BMI) [Ratio] 22.81 kg/m2 [employer] Work Phone: [employer]; [employer]. 05-31-2015 15:14-0500 Body surface area Derived from formula 1.66 m2 SpamLiony TEACHER COUNSELOR Work Phone: [employer]; [employer]. 05-31-2015 15:14-0500 Body temperature 100.4 [degF] SpamLiony TEACHER COUNSELOR Work Phone: [employer]; [employer]. Comment on above: Method: Tympanic 05-31-2015 15:14-0500 Body weight 61.24 kg SpamLiony TEACHER COUNSELOR Work Phone: [employer]; [employer]. 05-31-2015 15:14-0500 Diastolic blood pressure 82 mm[Hg] SpamLiony TEACHER COUNSELOR Work Phone: [employer].; [employer]. Comment on above: Patient Position: Sitting; Cuff Location : Left Arm; Cuff Size: Standard 05-31-2015 15:14-0500 Heart rate 87 /min SpamLiony TEACHER COUNSELOR Work Phone: [employer].; [employer] Comment on above: Pattern: Regular 05-31-2015 15:14-0500 Systolic blood pressure 114 mm[Hg] Karma Alexander LPN Work Phone: [employer]; [employer] Comment on above: Patient Position: Sitting; Cuff Location : Left Arm; Cuff Size: Standard 03-06-2015 14:01-0400 Body height 163.83 cm Priya Sumner MD Work Phone: [employer]; [employer] 03-06-2015 14:01-0400 Body mass index (BMI) [Ratio] 22.31 kg/m2 Priya Sumner MD Work Phone: [employer]; [employer] 03-06-2015 14:01-0400 Body surface area Derived from formula 1.65 m2 Priya Sumner MD Work Phone: [employer]; [employer] 03-06-2015 14:01-0400 Body temperature 98.6 [degF] Priya Sumner MD Work Phone: [employer]; [employer] Comment on above: Method: Tympanic 03-06-2015 14:01-0400 Body weight 59.88 kg Priya Sumner MD Work Phone: [employer]; [employer] 03-06-2015 14:01-0400 Diastolic blood pressure 81 mm[Hg] Priya Sumner MD Work Phone: [employer]; [employer] Comment on above: Patient Position: Sitting; Cuff Location : Left Arm; Cuff Size: Standard 03-06-2015 14:01-0400 Heart rate 76 /min Priya Sumner MD Work Phone: [employer]; [employer] Comment on above: Pattern: Regular 03-06-2015 14:01-0400 Systolic blood pressure 134 mm[Hg] Priya Sumner MD Work Phone: [employer]; [employer]. Comment on above: Patient Position: Sitting; Cuff Location : Left Arm; Cuff Size: Standard 11-19-2013 14:20-0400 Body height 163.83 cm Karma Ruizy TEACHER COUNSELOR Work Phone: [employer]; [employer]. 11-19-2013 14:20-0400 Body mass index (BMI) [Ratio] 28.05 kg/m2 Karma Ruizy TEACHER COUNSELOR Work Phone: [employer]; [employer]. 11-19-2013 14:20-0400 Body surface area Derived from formula 1.82 m2 Karma Ruizy TEACHER COUNSELOR Work Phone: [employer]; [employer]. 11-19-2013 14:20-0400 Body weight 75.3 kg Karma Benjamin TEACHER COUNSELOR Work Phone: [employer]; [employer]. 11-19-2013 14:20-0400 Diastolic blood pressure 81 mm[Hg] Karma Ruizy TEACHER COUNSELOR Work Phone: [employer]; [employer]. Comment on above: Patient Position: Sitting; Cuff Location : Left Arm; Cuff Size: Standard 11-19-2013 14:20-0400 Heart rate 92 /min Karma Ruizy TEACHER COUNSELOR Work Phone: [employer]; [employer]. Comment on above: Pattern: Regular 11-19-2013 14:20-0400 Systolic blood pressure 129 mm[Hg] Karma Benjamin TEACHER COUNSELOR Work Phone: [employer]; [employer]. Comment on above: Patient Position: Sitting; Cuff Location : Left Arm; Cuff Size: Standard 10-30-2012 09:51-0400 Body height 163.19 cm Karma Benjamin TEACHER COUNSELOR Work Phone: [employer]; [employer]. 10-30-2012 09:51-0400 Body mass index (BMI) [Ratio] 27.25 kg/m2 Karma Alexander LPN Work Phone: [employer].; [employer]. 10-30-2012 09:51-0400 Body surface area Derived from formula 1.78 m2 Karma Alexander LPN Work Phone: [employer].; [employer]. 10-30-2012 09:51-0400 Body weight 72.58 kg Karma Alexander LPN Work Phone: [employer].; [employer]. 10-30-2012 09:51-0400 Diastolic blood pressure 73 mm[Hg] Karma Alexander LPN Work Phone: [employer].; [employer]. Comment on above: Patient Position: Sitting; Cuff Location : Left Arm; Cuff Size: Standard 10-30-2012 09:51-0400 Heart rate 72 /min Karma Alexander LPN Work Phone: [employer].; [employer]. Comment on above: Pattern: Regular 10-30-2012 09:51-0400 Systolic blood pressure 104 mm[Hg] Karma Alexander LPN Work Phone: [employer]. Comment on above: Patient Position: Sitting; Cuff Location : Left Arm; Cuff Size: Standard 05-09-2011 09:45-0500 Body height 163.19 cm Neilee L Vess TEACHER COUNSELOR [employer]. 05-09-2011 09:45-0500 Body mass index (BMI) [Ratio] 26.57 kg/m2 Neilee L Vess TEACHER COUNSELOR [employer] 05-09-2011 09:45-0500 Body surface area Derived from formula 1.77 m2 Neilee L Vess TEACHER COUNSELOR [employer] 05-09-2011 09:45-0500 Body weight 70.76 kg Neilee L Vess TEACHER COUNSELOR [employer] [facility] [employer]. 05-09-2011 09:45-0500 Diastolic blood pressure 83 mm[Hg] Neilee L Vess TEACHER COUNSELOR [facility] [employer]. Comment on above: Patient Position: Sitting; Cuff Location : Left Arm; Cuff Size: Standard 05-09-2011 09:45-0500 Heart rate 81 /min Neilee L Vess TEACHER COUNSELOR [employer]. Comment on above: Pattern: Regular 05-09-2011 09:45-0500 Systolic blood pressure 122 mm[Hg] Neilee L Vess TEACHER COUNSELOR [employer]. Comment on above: Patient Position: Sitting; Cuff Location : Left Arm; Cuff Size: Standard 04-13-2010 15:00-0500 Body height 167.64 cm [employer] TEACHER COUNSELOR Work Phone: [employer] 04-13-2010 15:00-0500 Body mass index (BMI) [Ratio] 25.02 kg/m2 [employer] TEACHER COUNSELOR Work Phone: [employer] 04-13-2010 15:00-0500 Body surface area Derived from formula 1.79 m2 [employer] TEACHER COUNSELOR Work Phone: [employer] 04-13-2010 15:00-0500 Body weight 70.31 kg [employer] TEACHER COUNSELOR Work Phone: [employer] 04-13-2010 15:00-0500 Diastolic blood pressure 78 mm[Hg] Karma Benjamin TEACHER COUNSELOR Work Phone: [employer]. Comment on above: Patient Position: Sitting; Cuff Location : Left Arm; Cuff Size: Standard 04-13-2010 15:00-0500 Heart rate 81 /min SpamLiony TEACHER COUNSELOR Work Phone: [employer]; [employer] Comment on above: Pattern: Regular 04-13-2010 15:00-0500 Systolic blood pressure 116 mm[Hg] Karma Alexander LPN Work Phone: [facility] [employer]; [employer] Comment on above: Patient Position: Sitting; Cuff Location : Left Arm; Cuff Size: Standard Encounters Encounter Date Encounter Type Care Provider Facility Start: 02-15-2025 ambulatory GERALD CARDOZA [facility] Start: 10-13-2024 End: 10-13-2024 Patient encounter procedure Priya Sumner MD Work Phone: [facility] Start: 10-13-2024 Review [facility] MD [facility] Start: 05-11-2024 End: 05-11-2024 ambulatory GERALD CARDOZA [facility] Start: 01-08-2024 End: 01-12-2024 Patient encounter procedure Priya Sumner MD Work Phone: [employer]; [employer]. Start: 01-08-2024 End: 01-12-2024 Periodic preventive med est patient 40-64yrs Priya Sumner MD Work Phone: [employer] Start: 01-08-2024 Patient encounter procedure Papa Tee RN [employer] Start: 01-15-2023 End: 01-15-2023 Patient encounter status Gerald Maurer CNM Work Phone: [employer]; [employer]. Start: 01-15-2023 End: 01-15-2023 Periodic preventive med est patient 40-64yrs Priya Sumner MD Work Phone: [employer] Start: 01-13-2023 End: 01-13-2023 Historical Summary Priya Sumner MD Work Phone: [employer] Start: 05-01-2022 End: 05-01-2022 Historical Summary Priya Sumner MD Work Phone: [employer] Start: 04-03-2022 End: 04-03-2022 Historical Summary Priya Sumner MD Work Phone: [employer] Start: 01-04-2022 End: 01-04-2022 Patient encounter procedure Mery Fernandez TEACHER COUNSELOR [employer]. Start: 01-04-2022 End: 01-04-2022 Periodic preventive med est patient 40-64yrs Priya Sumner MD Work Phone: [employer]. Start: 01-09-2021 End: 01-09-2021 Patient encounter procedure Priya Sumner MD Work Phone: [employer]. Start: 01-09-2021 End: 01-09-2021 Periodic preventive med est patient 40-64yrs Priya Sumner MD Work Phone: [employer] Start: 01-11-2020 End: 01-11-2020 Patient encounter procedure Sarahy Bennett TEACHER COUNSELOR [employer]. Start: 01-11-2020 End: 01-11-2020 Periodic preventive med est patient 40-64yrs Priya Sumner MD Work Phone: [employer] Start: 04-02-2019 End: 04-02-2019 Patient encounter procedure Priya Sumner MD Work Phone: [employer]; [employer]. Start: 04-02-2019 End: 04-02-2019 Periodic preventive med est patient 40-64yrs Priya Sumner MD Work Phone: [employer] Start: 05-22-2017 End: 05-22-2017 Ambulatory Priya Stevens Facility:[facility] Start: 05-01-2017 Ambulatory Priya Stevens Facility:[facility] Start: 04-23-2017 End: 04-23-2017 Phone Encounter Priya Sumner MD Work Phone: [employer] Start: 04-23-2017 End: 04-23-2017 Orders Priya Sumner MD Work Phone: [employer] Start: 04-16-2017 [facility] Rodney Facility:[facility] Start: 04-10-2017 End: 04-10-2017 Patient encounter procedure Priya Sumner MD Work Phone: [employer] Start: 04-10-2017 End: 04-10-2017 Patient encounter status Priya Sumner MD Work Phone: [employer]. Start: 03-14-2017 End: 03-14-2017 Orders Priya Sumner MD Work Phone: [employer] Start: 12-14-2015 End: 12-14-2015 Patient encounter procedure Priya Sumner MD Work Phone: [employer] Start: 12-14-2015 End: 12-14-2015 Patient encounter status Iwona Redmond LPN [employer]. Start: 11-15-2015 End: 11-15-2015 Orders Priya Sumner MD Work Phone: [employer] Start: 07-12-2015 End: 07-12-2015 Orders Priya Sumner MD Work Phone: [employer] Start: 07-12-2015 End: 07-12-2015 Office outpatient visit 15 minutes Priya Sumner MD Work Phone: [employer] Start: 06-14-2015 End: 06-14-2015 Office outpatient visit 15 minutes Priya Sumner MD Work Phone: [employer] Start: 05-31-2015 End: 05-31-2015 Patient encounter procedure Priya Sumner MD Work Phone: [employer] Start: 04-04-2015 End: 04-04-2015 Patient encounter procedure Priya Sumner MD Work Phone: [employer] Start: 03-09-2015 End: 03-09-2015 Orders Priya Sumner MD Work Phone: [employer] Start: 03-06-2015 End: 03-06-2015 Patient encounter procedure Priya Sumner MD Work Phone: [employer] Start: 10-26-2014 End: 10-26-2014 Historical Summary Priya Sumner MD Work Phone: [employer] Start: 10-26-2014 End: 10-26-2014 Orders Priya Sumner MD Work Phone: [employer] Start: 09-23-2014 End: 09-23-2014 Orders Priya Sumner MD Work Phone: [employer] Start: 04-14-2014 End: 04-14-2014 Orders Priya Sumner MD Work Phone: [employer] Start: 04-14-2014 End: 04-14-2014 Phone Encounter Priya Sumner MD Work Phone: [employer] Start: 04-12-2014 End: 04-12-2014 Historical Summary Priya Sumner MD Work Phone: [employer] Start: 04-04-2014 End: 04-04-2014 Orders Priya Sumner MD Work Phone: [employer] Start: 11-19-2013 End: 11-19-2013 Orders Priya Sumner MD Work Phone: [employer] Start: 11-19-2013 End: 11-19-2013 Procedure Priya Sumner MD Work Phone: [employer] Start: 10-30-2012 End: 11-02-2012 Nursing evaluation of patient and report Priya Sumner MD Work Phone: [employer] Start: 05-09-2011 End: 05-09-2011 Patient encounter procedure [facility] Start: 05-09-2011 End: 05-09-2011 Routine gynecological examination Priya Sumner MD Work Phone: [facility]; [employer] [facility] Start: 08-08-2010 End: 08-08-2010 Orders Priya Sumner MD [facility]: [facility] Start: 06-07-2010 End: 06-07-2010 Orders Priya Sumner MD [facility] Start: 06-07-2010 End: 06-07-2010 Orders Priya Sumner MD [facility]: [facility] Start: 04-13-2010 End: 04-13-2010 Patient encounter procedure Priya Sumner MD [facility] Start: 04-13-2010 End: 04-13-2010 Routine gynecological examination Priya Sumner MD Work Phone: [employer] [facility] [employer] [facility] Patient encounter procedure Elana Page TEACHER COUNSELOR [facility] Patient encounter status Sarahy Bennett LP N [facility].; [facility] Procedures Date Procedure Procedure Detail Performing Clinician Start: 01-08-2024 End: 01-08-2024 Depression screening Crystal K Uptain CN Work Phone: Start: 01-08-2024 End: 01-08-2024 Pos clin depres scrn f/u doc Crystal K Uptain CN Work Phone: Start: 01-08-2024 End: 01-08-2024 Scr dep neg, no plan reqd Crystal K Upta in CN Work Phone: Start: 01-08-2024 End: 05-12-2024 Screening mammography bi 2-view breast inc cad Crystal K Uptain CN Work Phone: Start: 01-15-2023 End: 01-15-2023 Depression screening Crystal K Uptain CN M Work Phone: Start: 01-15-2023 End: 01-15-2023 Scr dep neg, no plan reqd Crystal K Upta in CNM Work Phone: Start: 12-27-2022 End: 12-27-2022 Screening colonoscopy Papa Tee RN Comment on above: Normal. Dr Bnag li Start: 01-04-2022 End: 01-04-2022 Depression screening Crystal K Uptain CN M Work Phone: Start: 01-04-2022 End: 01-04-2022 Scr dep neg, no plan reqd Crystal K Upta in CNM Work Phone: Start: 01-04-2022 End: 03-09-2022 Screening mammography bi 2-view breast inc cad Crystal K Uptain CNM Work Phone: Start: 01-09-2021 End: 01-09-2021 Depression screening Crystal K Uptain CN M Work Phone: Start: 01-09-2021 End: 01-09-2021 Scr dep neg, no plan reqd Crystal K Upta in CNM Work Phone: Start: 01-11-2020 End: 01-11-2020 Depression screening Crystal K Uptain CN M Work Phone: Start: 01-11-2020 End: 01-11-2020 Scr dep neg, no plan reqd Crystal K Upta in CNM Work Phone: Start: 04-02-2019 End: 04-02-2019 Depression screening Crystal K Uptain CN M Work Phone: Start: 04-02-2019 End: 04-02-2019 Scr dep neg, no plan reqd Crystal K Upta in CNM Work Phone: Start: 04-02-2019 End: 12-07-2019 Screening mammography bi 2-view breast inc cad Crystal K Uptain CNM Work Phone: Start: 04-23-2017 End: 05-07-2017 Us breast uni real time with image complete Priya Sumner MD Work Phone: Start: 04-22-2017 End: 04-22-2017 Screening mammography Papa Tee RN Comment on above: :baseline ma mmo: left breast inferior/posterior calcifications appear benign. right clear. density 50-75%09/2014:left breast mammo calcifications /28/17 bilat NL, right spot compressiojn neg, density 50-75% u.s on 04/23 neg Start: 04-10-2017 End: 04-10-2017 Flu imm no admin doc zoe Priya palumbo MD Work Phone: Start: 04-10-2017 End: 04-10-2017 Body mass index documented Priya lyn MD Work Phone: Start: 03-14-2017 End: 04-23-2017 Screening mammography bi 2-view breast inc cad Priya Sumner MD Work Phone: Start: 11-24-2015 End: 11-24-2015 Lab findings surveillance Papa Tee RN Comment on above: 97 Start: 11-24-2015 End: 11-24-2015 Lipid panel Papa Tee RN Comment on above: TC:164 Start: 03-06-2015 End: 03-09-2015 Us pelvic nonobstetric real-time image complete Brenda Hernadez PA-C Work Phone: Start: 10-26-2014 End: 10-26-2014 Mammogram, one breast Priya Sumner MD Work Phone: Start: 04-14-2014 End: 07-25-2015 Us exam, breast(s) Priya Francois Work Phone: Start: 04-04-2014 End: 07-25-2015 Mammogram, both breasts Priya garcia MD Work Phone: Comment on above: Right axillary tende rness and tenderness under right breast Start: 11-19-2013 End: 11-19-2013 Shaving skin lesion 1 trunk/arm/leg diam 0.5cm/< Priya Sumner MD Work Phone: Start: 05-29-2010 End: 06-04-2010 Mri spinal canal lumbar w/o contrast material Priya Sumner MD Work Phone: Start: 05-26-2005 End: 05-26-2005 Biopsy of breast Papa Tee RN Comment on above: benign tissue Endometrial ablation Papa Tee RN Comment on above: 2016 [facility] Microscopic examinat ion of cervical Papanicolaou smear Papa Tee RN Comment on above: Normal. 2020 Microscopic examinat ion of cervical Papanicolaou smear Papa Tee RN Comment on above: Normal. 2020 Normal/ negative Plan of Treatment Date Care Activity Detail Author Start: 12-28-2024 Patient encounter procedure Medical; PHYSICAL - awv/ will be fasting [facility] Start: 28-Dec-2024 08:20-04:00 NANI Maurer Appointment [facility] Start: 01-08-2024 Screening mammograph y bi 2-view breast inc cad Mammogram Bilateral Screening Digital w/CAD (14863) with 3D (tomosynthesis), bilateral ([id number]) Start: 08-Jan-2024 Intent [facility]; [facility] Immunizations Immunization Date Immunization Notes Care Provider Melanie booth 05-09-2011 tetanus toxoid, reduced diphtheria toxoid, and acellular pertussis vaccine, adsorbed Priya Sumner MD Work Phone: [facility]; [facility] Comment on above: Site: Deltoid (Left) VIS Given: * Tetanus/Diphtheria/(Pertussis) (Td/Tdap) (04/12/08) Payers Date Payer Category Payer Unknown [id number] 1970 Unknown [id number] 1970 Unknown [id number] Unknown [employer] Unknown [id number] Social History Date Type Detail Facility Caffeine Use Caffeine Use [employer]; [employer] Primary Contro l Method: Primary Control Method: ; Partner had vasectomy. [employer]; [employer] Tobacco Use: Tobacco Use: ; N ever smoker. [employer]; [employer]. Female [employer]; [employer] Work Phone: Never smoked tobacco [employer] Work Phone: Partner had vasectomy [employer]; [employer] Work Phone: Summary Purpose Family History No Family History Records Found arthritis Status:Active Comments:mother benign brain tumor Status:Active Comments:moth er bladder cancer Status:Active Comments:mother Hypertension Status:Active Comments:Mother. laryngeal cancer Status:Active Comments:father arthritis Status:Active Comments:mother benign brain tumor Status:Active Comments:moth er bladder cancer Status:Active Comments:mother Hypertension Status:Active Comments:Mother. laryngeal cancer Status:Active Comments:father arthritis Status:Active Comments:mother benign brain tumor Status:Active Comments:moth er bladder cancer Status:Active Comments:mother Hypertension Status:Active Comments:Mother. laryngeal cancer Status:Active Comments:father arthritis Status:Active Comments:mother benign brain tumor Status:Active Comments:moth er bladder cancer Status:Active Comments:mother Hypertension Status:Active Comments:Mother. laryngeal cancer Status:Active Comments:father arthritis Status:Active Comments:mother benign brain tumor Status:Active Comments:moth er bladder cancer Status:Active Comments:mother Hypertension Status:Active Comments:Mother. laryngeal cancer Status:Active Comments:father arthritis Status:Active Comments:mother benign brain tumor Status:Active Comments:moth er bladder cancer Status:Active Comments:mother Hypertension Status:Active Comments:Mother. laryngeal cancer Status:Active Comments:father Advance Directives No Advanced Directives Records FoundNo Advanced Directives Records FoundNo Advanced Directives Records FoundNo Advanced Directives Records Found Additional Source Comments INFORMATION SOURCE (unrecogn ized section and content) DATE CREATED AUTHOR 11/18/2017 [facility] DATE CREATED AUTHOR AUTHOR'S ORGANIZ ATION 04/03/[address] [facility] ([place]) DATE CREATED AUTHOR AUTHOR'S ORGANIZ ATION 02/16/2025 [facility] DATE CREATED AUTHOR AUTHOR'S ORGANIZ ATION 02/17/2025 [facility] FOR RECORDS PERTAINING TO PATIENTS WHO ARE OR HAVE BEEN ENROLLED IN A CHEMICAL DEPENDENCY/SUBSTANCEABUSE PROGRAM, SOME INFORMATION MAY BE OMITTED. This clinical summary was aggregated from multiple sources. Caution should be exercised in using it in the provision of clinical care. This summary normalizes information from multiple sources, and as a consequence, information in this document may materially change the coding, format and clinical context of patient data. In addition, data may be omitted in some cases. CLINICAL DECISIONS SHOULD BE BASED ON THE PRIMARY CLINICAL RECORDS. [facility] [employer] provides no warranty or guarantee of the accuracy or completeness of information in this document.
[2025-05-12] MEDS: Lactated Ringers 1,000 ML 1000 ML IV (11:20)
[2025-05-12] MEDS: Midazolam 2 MG/2 ML Syringe IV (11:20)
[2025-05-12] MEDS: Lidocaine 1% (5 ml sdv) 5 ML Vial IV (11:26)
[2025-05-12] MEDS: fentaNYL 100 MCG/2 ML Ampul IV (11:26)
[2025-05-12] MEDS: Bupiv/Epi 0.25% 30 ML Vial (11:54)
--- NOTE | 2025-05-12 12:10 | PCM.POST.ANE ---
Anesthesia: Postop Eval I Current Vital Signs Temperature: 97.5 F Pulse Rate: 76 Blood Pressure: 122/84 Respiratory Rate: 16 Pulse Ox: 100 Oxygen Delivery Method: Room Air Assessment Airway patent: Yes Spontaneous unlabored respirations: Yes Mental status: Asleep nausea: No Vomiting: No Anesthesia Complication: No Fluid Hydration Crystalloid volume administer (ml): 600 Total IV fluid infused: 600 Progress Note Anesthesia document: Postop Eval 1 completed: Yes
--- NOTE | 2025-05-12 12:12 | EX.PCM.DISCH ---
Discharge Instructions Diet Discharge Diet: Light diet - advance as tolerated Activity Discharge Activity: No Restrictions May shower in (days): 1 Ice area for (Minutes): 30 Lifting Restrictions: Keep lifting under 50 pounds for about 30 days Dressing / Incision Call your doctor if your incision/area has: Continuous Slow Oozing, Sudden Increased Bleeding, Increased Pain/ Swelling, Increased Redness and Foul Smelling Discharge Call your doctor if you observe: Fever of 101 or Higher Cleanse incision/area with: Soap & Water Follow Up Care Please Follow Up With: Ran Jimenez MD When: 2 to 3 weeks. Please call office to schedule appointment Test Results: Test results from this visit will be discussed in further detail at your follow-up appointment, if applicable. Discharge Plan Admission Primary Reason for Your Visit: Hemorrhoid ligation surgery Attending Provider: Ran Jimenez Primary Care Provider: Adia Hair Instructions Print Language: Upper Sorbian Discharge Orders/Prescriptions Prescriptions: New oxycodone 5 mg tablet 5 mg PO Q8H PRN (Reason: pain) 3 Days Qty: 10 0RF Referrals / Follow Up: Adia Hair CNM [Primary Care Provider, Obstetrics] Disposition Disposition (needs filled in before D/C Order can be placed): Home, Self Care
--- NOTE | 2025-05-12 12:15 | PCM.OPRPT ---
Procedures Digestive 40xxx-49xxx: 22089 Excision, Anus w/US guidance Operative Report (Standard) Operative Information Date of Procedure: 05/12/25 Pre-Operative Diagnosis: Symptomatic hemorrhoid Post-Operative Diagnosis: Same Surgery/Procedure Performed: Doppler guided hemorrhoid artery ligation physician general practice: Yes Night Coordinator: Nora Cardoza Tasks completed by retail sales assistant: Retracting Additional preschool assistant principal?: No Type of Anesthesia: General and Local RN Documented Start/Stop Times: Operation Date: 05/12/25 11:30 Case Time Into Pre-Op 05/12/25 09:57 Anesthesia Start 05/12/25 11:20 Into Room 05/12/25 11:20 Procedure Start 05/12/25 11:40 Procedure End 05/12/25 11:56 Anesthesia End 05/12/25 12:03 Out of Room 05/12/25 12:03 Into Recovery 05/12/25 12:04 Procedure Start Time: 11:40 Procedure Stop Time: 11:55 Select all DRAINS/GRAFTS/IMPLANTS that apply: None Estimated Blood Loss: Minimal Specimen collected: No Description of surgery: The patient is a 54-year-old female who was recently seen to the office with symptomatic internal hemorrhoids. I offered her a Doppler guided hemorrhoid artery ligation surgery. We discussed the details of the planned procedure including the risks benefits and alternatives. She wished to proceed. She was brought to the operating room today following informed consent. She was placed supine on the operative table with arms outstretched and arm boards. A general anesthesia was induced. Her legs were then placed in a modified lithotomy position with appropriate padding and positioning. The perineal area was then prepped and draped in the usual sterile manner. Digital rectal exam was performed. No obvious masses were noted. The Doppler probe was inserted first at the 12 o'clock position and was rotated in a clockwise direction such that at each point in which a dopplerable signal was encountered, a 2-0 Vicryl suture was placed in a [id number] manner. This was repeated around the entire circumference of the rectum. These were roughly placed in the 1, 3, 5, 7, 9 and 11:00 positions. The sutures effectively tied off the blood supply to the internal hemorrhoids. Once this was completed, a bilateral pudendal block was performed using local anesthetic. She was then awakened from anesthesia and taken to recovery in good condition. Surgical Findings: See operative note Complications Complications: No Admit VTE Documentation VTE Present on Admission: No VTE Mechan Device Prophylaxis: SCD's VTE Pharm Prophylaxis ordered?: No Reason prophylaxis not ordered: Treatment Not Indicated
--- NOTE | 2025-05-12 12:55 | POSTOPAN2_ITS ---
Anesthesia Postop Eval I Sum Postop Eval Completion status Anesthesia document: Postop Eval 1 completed: Yes Anesthesia Postop Eval I Summary Anesthesia Postop Eval I Summary: Anesthesia Postop Eval I: Assessment Summary Airway patent Yes 05/12/25 12:11 IMMIGRATION [email or web address] Spontaneous unlabored Yes 05/12/25 12:11 IMMIGRATION [email or web address] respirations Mental status Asleep 05/12/25 12:11 IMMIGRATION [email or web address] nausea No 05/12/25 12:11 IMMIGRATION [email or web address] Vomiting No 05/12/25 12:11 IMMIGRATION [email or web address] Anesthesia Postop Eval I: Fluid Summary Crystalloid volume administer 600 05/12/25 12:11 IMMIGRATION [email or web address] (ml) Colloids volume administered ( ml) Blood Product volume administered (ml) Total IV fluid infused 600 05/12/25 12:11 IMMIGRATION [email or web address] Anesthesia Postop Eval I: Summary Notes Anesthesia Complication No 05/12/25 12:11 IMMIGRATION [email or web address] Anesthesia Complication Comment: Post-operative progress note Anesthesia: Postop Eval II Evaluation Mental status: Awake and Calm Pain Level: 1 nausea: No Vomiting: No Complications Anesthesia Complication: No
--- NOTE | 2025-05-12 12:55 | PCM.POSTANE2 ---
Anesthesia Postop Eval I Sum Postop Eval Completion status Anesthesia document: Postop Eval 1 completed: Yes Anesthesia Postop Eval I Summary Anesthesia Postop Eval I Summary: Anesthesia Postop Eval I: Assessment Summary Airway patent Yes 05/12/25 12:11 [email or web address] [email or web address] Spontaneous unlabored Yes 05/12/25 12:11 [email or web address] [email or web address] respirations Mental status Asleep 05/12/25 12:11 [email or web address] [email or web address] nausea No 05/12/25 12:11 [email or web address] [email or web address] Vomiting No 05/12/25 12:11 [email or web address] [email or web address] Anesthesia Postop Eval I: Fluid Summary Crystalloid volume administer 600 05/12/25 12:11 [email or web address] (ml) Colloids volume administered ( ml) Blood Product volume administered (ml) Total IV fluid infused 600 05/12/25 12:11 [email or web address] Anesthesia Postop Eval I: Summary Notes Anesthesia Complication No 05/12/25 12:11 [email or web address] Anesthesia Complication Comment: Post-operative progress note Anesthesia: Postop Eval II Evaluation Mental status: Awake and Calm Pain Level: 1 nausea: No Vomiting: No Complications Anesthesia Complication: No
== END 2025-05-12 15:30 | disposition home or self-care (01) ==
LOC: SDC 09:58 → AC 09:59
PROVIDERS: PCP Midwife; Referring Provider Surgery; Visit Provider Surgery
PROC: (CPT 46948; principal; 2025-05-12 11:15)
DX: K64.8 Other hemorrhoids (principal)
CPT/HCPCS: 46948; 00902; J2405